=== PATIENT | female | born 1930 | race Caucasian/White ===

== ENCOUNTER 2017-05-18 06:19 | Emergency (ER) | payer MEDICARE, BC ==
--- NOTE | 2017-05-18 07:10 | EDM.PDOC ---
ED HPI GENERAL MEDICAL PROBLEM - General Chief Complaint: Genitourinary Problem Stated Complaint: POSSIBLE UTI Time Seen by Provider: 05/18/17 07:00 - History of Present Illness INITIAL COMMENTS - FREE TEXT/NARRATIVE: HISTORY AND PHYSICAL: History of present illness: The patient is a 87-year-old female with a history of hypertension who follows at [facility] and presents with complaints of dysuria and frequency that started 2 days ago, she felt it was getting better yesterday but then last evening and this morning it seemed to worsen again. She has had bladder infections in the past and has had similar symptoms. She has no flank pain no abdominal pain and only had some nausea this morning with one small clear emesis. Patient says that she has anxiety and sometimes when she gets anxious she will have nausea and vomiting. She took an anxiety pill this morning and her nausea is now gone. She has no chest pain shortness of breath or upper respiratory symptoms. She has had normal bowel movements. The patient says that she felt very hot yesterday and had chills as well but did not take her temperature. She does not feel that way currently. The patient denies that she is having urinary retention she does has the urgency frequency and burning. Review of systems: As per history of present illness and below otherwise all systems reviewed and negative. Past medical history: As per history of present illness and as reviewed below otherwise noncontributory. Surgical history: As per history of present illness and as reviewed below otherwise noncontributory. Social history: No reported history of drug or alcohol abuse. Family history: As per history of present illness and as reviewed below otherwise noncontributory. Physical exam: General: Well-developed well-nourished female who is nontoxic and speaking clearly and easily in the ED. She seems a little anxious in discussing things with me but she has nontoxic and interactive HEENT: Atraumatic, normocephalic, negative for conjunctival pallor or scleral icterus, mucous membranes moist, throat clear, neck supple, nontender, trachea midline. Lungs: Clear to auscultation, breath sounds equal bilaterally, chest nontender. Heart: S1S2, regular rate and rhythm on my evaluation Abdomen: Soft, nondistended, nontender. There is no evidence of any distended bladder rebound guarding or tympany on percussion. Bowel sounds are slightly hypoactive Negative for masses or hepatosplenomegaly. Negative for costovertebral tenderness. Pelvis: Stable nontender. Genitourinary: Deferred. Rectal: Deferred. Extremities: Atraumatic, negative for cords or calf pain. Neurovascular unremarkable. Neuro: Awake, alert, oriented. Cranial nerves II through XII unremarkable. Cerebellum unremarkable. Motor and sensory unremarkable throughout. Exam nonfocal. Diagnostics: UA urine culture CBC CMP Therapeutics: Rocephin Repeat heart rate by nursing was 83 Impression: UTI Definitive disposition and diagnosis as appropriate pending reevaluation and review of above. Lower Abdomen Pain Score (Numeric/FACES): 10 - Related Data Allergies Allergy/AdvReac Type Severity Reaction Status Date / Time neomycin Allergy Rash Verified 02/09/15 13:49 sulfamethoxazole Allergy Rash Verified 02/09/15 13:49 [From Bactrim] trimethoprim [From Bactrim] Allergy Rash Verified 02/09/15 13:49 Home Meds: Home Meds Diltiazem HCl [Diltiazem ER] 120 mg PO BEDTIME 10/21/14 [History] Estradiol [Estradiol] 1 patch .ROUTE ASDIRECTED 10/21/14 [History] HCTZ/Triamterene [Maxzide 25-37.5 MG] 25 - 37.5 mg PO BRK 10/21/14 [History] Quinapril HCl 20 mg PO BRK 10/21/14 [History] Ranitidine [Zantac] 150 mg PO DAILY 10/21/14 [History] LORazepam 0.5 mg PO TID PRN 11/17/14 [History] Loratadine 10 mg PO DAILY PRN 11/17/14 [History] Multivitamin [Multi-Vitamin Daily] 1 tab PO DAILY 02/09/15 [History] Past Medical History HEENT History: Reports: Impaired Vision Cardiovascular History: Reports: Hypertension Gastrointestinal History: Reports: GERD, Hiatal Hernia Genitourinary History: Reports: None 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: - Infectious Disease History Infectious Disease History: Reports: Measles - Past Surgical History HEENT Surgical History: Reports: None GI Surgical History: Reports: Colonoscopy, Hernia, Abdominal Female Surgical History: Reports: Hysterectomy Social & Family History - Family History Family Medical History: Noncontributory - Tobacco Use Smoking Status *Q: Never Smoker Second Hand Smoke Exposure: Yes - Caffeine Use Caffeine Use: Reports: None - Alcohol Use Days Per Week of Alcohol Use: 0 Number of Drinks Per Day: 0 Total Drinks Per Week: 0 - Recreational Drug Use Recreational Drug Use: No Drug Use in Last 12 Months: No ED ROS GENERAL - Review of Systems Review Of Systems: ROS reveals no pertinent complaints other than HPI. ED EXAM, GENERAL - Physical Exam Exam: See Below (See dictation) Course - Vital Signs Last Recorded V/S: Last Vital Signs Temp 36.8 C 05/18/17 07:06 Pulse 83 05/18/17 07:11 Resp 20 05/18/17 06:24 BP 142/73 H 05/18/17 07:11 Pulse Ox 94 L 05/18/17 06:24 - Orders/Labs/Meds Orders: Active Orders 24 hr Category Date Time Status CULTURE URINE [RM] Stat Lab 05/18/17 06:40 Received Labs: Laboratory Tests 05/18/17 05/18/17 05/18/17 Range/Units 06:40 07:16 07:16 WBC 9.82 (4.0-11.0) K/uL RBC 4.36 (4.30-5.90) M/uL Hgb 13.5 (12.0-16.0) g/dL Hct 39.6 (36.0-46.0) % MCV 90.8 (80.0-98.0) fL MCH 31.0 (27.0-32.0) pg MCHC 34.1 (31.0-37.0) g/dL RDW Std Deviation 44.4 (28.0-62.0) fl RDW Coeff of Ranjit 13 (11.0-15.0) % Plt Count 299 (150-400) K/uL MPV 8.80 (7.40-12.00) fL Neut % (Auto) 73.3 (48.0-80.0) % Lymph % (Auto) 20.1 (16.0-40.0) % [place] % (Auto) 5.9 (0.0-15.0) % Eos % (Auto) 0.5 (0.0-7.0) % Baso % (Auto) 0.2 (0.0-1.5) % Neut # (Auto) 7.2 H (1.4-5.7) K/uL Lymph # (Auto) 2.0 (0.6-2.4) K/uL [place] # (Auto) 0.6 (0.0-0.8) K/uL Eos # (Auto) 0.1 (0.0-0.7) K/uL Baso # (Auto) 0.0 (0.0-0.1) K/uL Nucleated RBC % 0.0 /100WBC Nucleated RBCs # 0 K/uL Sodium 136 (136-146) mmol/L Potassium 3.9 (3.5-5.1) mmol/L Chloride 101 (98-110) mmol/L Carbon Dioxide 25 (21-31) mmol/L BUN 24 H (6.0-23.0) mg/dL Creatinine 1.1 (0.6-1.5) mg/dL Est Cr Clr Drug Dosing 31.11 mL/min Estimated GFR (MDRD) 47.0 ml/min Glucose 107 (60-110) mg/dL Calcium 9.1 (8.8-10.8) mg/dL Total Bilirubin 0.9 (0.1-1.5) mg/dL AST 16 (5-40) IU/L ALT 15 (8-54) IU/L Alkaline Phosphatase 82 (40-150) Total Protein 7.2 (6.0-8.0) g/dL Albumin 4.0 (3.4-4.8) g/dL Globulin 3.2 (2.0-3.5) g/dL Albumin/Globulin Ratio 1.3 (1.3-2.8) Urine Color YELLOW Urine Appearance CLOUDY Urine pH 6.0 (5.0-8.0) Ur Specific [place] 1.010 (1.001-1.035) Urine Protein NEGATIVE (NEGATIVE) mg/dL Urine Glucose (UA) NEGATIVE (NEGATIVE) mg/dL Urine Ketones NEGATIVE (NEGATIVE) mg/dL Urine Occult Blood MODERATE (NEGATIVE) Urine Nitrite NEGATIVE (NEGATIVE) Urine Bilirubin NEGATIVE (NEGATIVE) Urine Urobilinogen 0.2 (<2.0) EU/dL Ur Leukocyte Esterase LARGE (NEGATIVE) Urine RBC 0-3 (0-2/HPF) Urine WBC >100 (0-5/HPF) Ur Epithelial Cells OCCASIONAL (NONE-FEW) Ur Renal Epithelial Cell OCCASIONAL Urine Bacteria 1+ H (NEGATIVE) Meds: Medications Discontinued Medications Generic Name Dose Route Start Last Admin Trade Name Freq PRN Reason Stop Dose Admin Ceftriaxone Sodium 1,000 mg/ 4 mls @ 4 mls/sec 05/18/17 07:53 Lidocaine HCl IM 05/18/17 07:54 ONETIME ONE Departure - Departure Time of Disposition: 07:54 Disposition: Home, Self-Care 01 Condition: Good Clinical Impression: UTI, Urinary tract infectious disease - Discharge Information Referrals: PCP,None [Primary Care Provider] - Forms: ED Department Discharge Additional Instructions: The following information is given to patients seen in the emergency department who are being discharged to home. This information is to outline your options for follow-up care. We provide all patients seen in our emergency department with a follow-up referral. The need for follow-up, as well as the timing and circumstances, are variable depending upon the specifics of your emergency department visit. If you don't have a primary care physician on staff, we will provide you with a referral. We always advise you to contact your personal physician following an emergency department visit to inform them of the circumstance of the visit and for follow-up with them and/or the need for any referrals to a consulting specialist. The emergency department will also refer you to a specialist when appropriate. This referral assures that you have the opportunity for followup care with a specialist. All of these measure are taken in an effort to provide you with optimal care, which includes your followup. Under all circumstances we always encourage you to contact your private physician who remains a resource for coordinating your care. When calling for followup care, please make the office aware that this follow-up is from your recent emergency room visit. If for any reason you are refused follow-up, please contact the [facility] emergency department at and ask to speak to the emergency department charge nurse. [address] [place] [address] [facility] Primary care- Internal Medicine and Family [address] [address] Push fluids and take antibiotics until they're finished. He can also take the Pyridium your prescribed for bladder spasm and discomfort. Please call and follow-up with your provider at [facility] in the next few days for reevaluation and further care. Return to ER as needed and as discussed. - My Orders Last 24 Hours: My Active Orders 05/18/17 06:40 CULTURE URINE [RM] Stat - Assessment/Plan Last 24 Hours: My Active Orders 05/18/17 06:40 CULTURE URINE [RM] Stat
[2017-05-18] MEDS ORDERED: cefTRIAXone 1,000 MG in Lidocaine 1% 4 ML IM ONE (07:53)
[2017-05-18 08:26] VITALS: BP 135/78
== END 2017-05-18 08:20 | disposition home or self-care (01) ==
LOC: MW.ED 06:19
DX: N39.0 Urinary tract infection, site not specified (principal); I10 Essential (primary) hypertension; K21.9 Gastro-esophageal reflux disease without esophagitis; Z90.710 Acquired absence of both cervix and uterus; Z88.2 Allergy status to sulfonamides; Z88.1 Allergy status to other antibiotic agents; Z79.899 Other long term (current) drug therapy
CPT/HCPCS: 36415; 80053; 81001; 85025; 87086; 96372; 99283; J0696; 87088; 87186

== ENCOUNTER 2018-02-28 16:53 | Emergency (ER) | payer MEDICARE, OTHER ==
--- NOTE | 2018-02-28 17:13 | EDM.PDOC ---
ED HPI GENERAL MEDICAL PROBLEM - General Chief Complaint: Genitourinary Problem Stated Complaint: UTI Time Seen by Provider: 02/28/18 17:06 Source of Information: Reports: Patient - History of Present Illness INITIAL COMMENTS - FREE TEXT/NARRATIVE: HISTORY AND PHYSICAL: History of present illness: []88-year-old female emergency department with 2 days of urinary urgency and dysuria with past medical history of hypertension and proximal A. fib. Patient states that yesterday she noticed that she was going to the bathroom more frequently. Later that evening she noticed that she was having more urgency as well as minor burning with urination. Over the evening she did feel somewhat like she had a fever and had some mild neck night sweats. Today states that the burning has become much more severe so came to the emergency department for further evaluation. Patient states that she has had urinary tract infections previously with similar symptoms. She denies any back pain or hematuria. She currently denies any chest pain, palpitation, shortness breath, syncopal episodes, focal neurologic episodes. Prior to current symptoms she was feeling well and actually had a physical exam on Friday [address] [address] and was told she was doing very well. Review of systems: As per history of present illness and below otherwise all systems reviewed and negative. Past medical history: As per history of present illness and as reviewed below otherwise noncontributory. Surgical history: As per history of present illness and as reviewed below otherwise noncontributory. Social history: No reported history of drug or alcohol abuse. Family history: As per history of present illness and as reviewed below otherwise noncontributory. Physical exam: HEENT: Atraumatic, normocephalic, pupils reactive, negative for conjunctival pallor or scleral icterus, mucous membranes moist, throat clear, neck supple, nontender, trachea midline. Lungs: Clear to auscultation, breath sounds equal bilaterally, chest nontender. Heart: S1S2, regular, negative for clicks, rubs, or JVD. Abdomen: Soft, nondistended, nontender. Negative for masses or hepatosplenomegaly. Negative for costovertebral tenderness. Pelvis: Stable nontender. Genitourinary: Deferred. Rectal: Deferred. Extremities: Atraumatic, negative for cords or calf pain. Neurovascular unremarkable. Neuro: Awake, alert, oriented. Cranial nerves II through XII unremarkable. Cerebellum unremarkable. Motor and sensory unremarkable throughout. Exam nonfocal. Diagnostics: CBC, BMP, UA/UC Therapeutics: Cipro 500 mg by mouth twice a day 7 days Impression: Acute cystitis Urinary urgency Dysuria Plan: CBC and BMP were unremarkable. Urinalysis revealed +1 bacteria in the numerous to count white blood cells indicative of acute cystitis. Patient was given a prescription for ciprofloxacin 500 mg by mouth twice a day and told to continue to hydrate. She was also given Azo for her burning dysuria. She was instructed to follow-up with her primary care physician next week. Discharged in good condition with instructions to return to emergency department if she had any new or worsening symptoms. Perineal Area Pain Score (Numeric/FACES): 9 - Related Data Allergies Allergy/AdvReac Type Severity Reaction Status Date / Time neomycin Allergy Rash Verified 02/28/18 17:02 sulfamethoxazole Allergy Rash Verified 02/28/18 17:02 [From Bactrim] trimethoprim [From Bactrim] Allergy Rash Verified 02/28/18 17:02 Home Meds: Home Meds Diltiazem HCl [Diltiazem ER] 120 mg PO BEDTIME 10/21/14 [History] Estradiol 1 patch .ROUTE ASDIRECTED 10/21/14 [History] HCTZ/Triamterene [Maxzide 25-37.5 MG] 25 - 37.5 mg PO BRK 10/21/14 [History] Quinapril HCl 20 mg PO BRK 10/21/14 [History] Ranitidine [Zantac] 150 mg PO DAILY 10/21/14 [History] LORazepam 0.5 mg PO TID PRN 11/17/14 [History] Loratadine 10 mg PO DAILY PRN 11/17/14 [History] Multivitamin [Multi-Vitamin Daily] 1 tab PO DAILY 02/09/15 [History] Past Medical History HEENT History: Reports: Impaired Vision Cardiovascular History: Reports: Hypertension Gastrointestinal History: Reports: GERD, Hiatal Hernia Genitourinary History: Reports: None 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: - Infectious Disease History Infectious Disease History: Reports: Measles - Past Surgical History HEENT Surgical History: Reports: None GI Surgical History: Reports: Colonoscopy, Hernia, Abdominal Female Surgical History: Reports: Hysterectomy Social & Family History - Family History Family Medical History: Noncontributory - Caffeine Use Caffeine Use: Reports: None ED ROS GENERAL - Review of Systems Review Of Systems: See Below ED EXAM, GENERAL - Physical Exam Exam: See Below Course - Vital Signs Last Recorded V/S: Last Vital Signs Temp 97.6 F 02/28/18 18:29 Pulse 84 02/28/18 18:29 Resp 18 02/28/18 18:29 BP 163/73 H 02/28/18 18:29 Pulse Ox 96 02/28/18 18:29 - Orders/Labs/Meds Orders: Active Orders 24 hr Category Date Time Status CULTURE URINE [RM] Stat Lab 02/28/18 17:11 Ordered Labs: Laboratory Tests 02/28/18 02/28/18 02/28/18 Range/Units 17:11 17:33 17:33 WBC 9.81 (4.0-11.0) K/uL RBC 4.36 (4.30-5.90) M/uL Hgb 13.7 (12.0-16.0) g/dL Hct 40.0 (36.0-46.0) % MCV 91.7 (80.0-98.0) fL MCH 31.4 (27.0-32.0) pg MCHC 34.3 (31.0-37.0) g/dL RDW Std Deviation 45.5 (28.0-62.0) fl RDW Coeff of Ranjit 14 (11.0-15.0) % Plt Count 348 (150-400) K/uL MPV 9.20 (7.40-12.00) fL Neut % (Auto) 54.7 (48.0-80.0) % Lymph % (Auto) 34.8 (16.0-40.0) % [place] % (Auto) 8.7 (0.0-15.0) % Eos % (Auto) 1.5 (0.0-7.0) % Baso % (Auto) 0.3 (0.0-1.5) % Neut # (Auto) 5.4 (1.4-5.7) K/uL Lymph # (Auto) 3.4 H (0.6-2.4) K/uL [place] # (Auto) 0.9 H (0.0-0.8) K/uL Eos # (Auto) 0.2 (0.0-0.7) K/uL Baso # (Auto) 0.0 (0.0-0.1) K/uL Nucleated RBC % 0.0 /100WBC Nucleated RBCs # 0 K/uL Sodium 136 (136-145) mmol/L Potassium 3.7 (3.5-5.1) mmol/L Chloride 101 (98-107) mmol/L Carbon Dioxide 27.3 (21.0-32.0) mmol/L BUN 31 H (7.0-18.0) mg/dL Creatinine 1.3 H (0.6-1.0) mg/dL Est Cr Clr Drug Dosing 26.92 mL/min Estimated GFR (MDRD) 38.7 ml/min Glucose 114 H (74-106) mg/dL Calcium 8.8 (8.5-10.1) mg/dL Urine Color YELLOW Urine Appearance CLOUDY Urine pH 6.0 (5.0-8.0) Ur Specific [place] <= 1.005 (1.001-1.035) Urine Protein NEGATIVE (NEGATIVE) mg/dL Urine Glucose (UA) NEGATIVE (NEGATIVE) mg/dL Urine Ketones NEGATIVE (NEGATIVE) mg/dL Urine Occult Blood MODERATE (NEGATIVE) Urine Nitrite NEGATIVE (NEGATIVE) Urine Bilirubin NEGATIVE (NEGATIVE) Urine Urobilinogen 0.2 (<2.0) EU/dL Ur Leukocyte Esterase LARGE (NEGATIVE) Urine RBC 0-3 (0-2/HPF) Urine WBC TO NUMEROUS TO COUNT H (0-5/HPF) Ur Epithelial Cells OCCASIONAL (NONE-FEW) Urine Bacteria 1+ H (NEGATIVE) Meds: Medications Discontinued Medications Generic Name Dose Route Start Last Admin Trade Name Freq PRN Reason Stop Dose Admin Phenazopyridine HCl 200 mg 02/28/18 18:26 02/28/18 18:33 Pyridium PO 02/28/18 18:27 200 mg ONETIME ONE Administration Departure - Departure Time of Disposition: 18:49 Disposition: Home, Self-Care 01 Condition: Good Clinical Impression: Acute cystitis Qualifiers: Hematuria presence: without hematuria Qualified Code(s): N30.00 - Acute cystitis without hematuria - Discharge Information Forms: ED Department Discharge Additional Instructions: My general discharge The following information is given to patients seen in the emergency department who are being discharged to home. This information is to outline your options for follow-up care. We provide all patients seen in our emergency department with a follow-up referral. The need for follow-up, as well as the timing and circumstances, are variable depending upon the specifics of your emergency department visit. If you don't have a primary care physician on staff, we will provide you with a referral. We always advise you to contact your personal physician following an emergency department visit to inform them of the circumstance of the visit and for follow-up with them and/or the need for any referrals to a consulting specialist. The emergency department will also refer you to a specialist when appropriate. This referral assures that you have the opportunity for follow-up care with a specialist. All of these measure are taken in an effort to provide you with optimal care, which includes your follow-up. Under all circumstances we always encourage you to contact your private physician who remains a resource for coordinating your care. When calling for follow-up care, please make the office aware that this follow-up is from your recent emergency room visit. If for any reason you are refused follow-up, please contact the [facility] Emergency Department at and asked to speak to the emergency department charge nurse. [facility] Primary Care [address] [place] [address] [place] [address] - My Orders Last 24 Hours: My Active Orders 02/28/18 17:11 CULTURE URINE [RM] Stat - Assessment/Plan Last 24 Hours: My Active Orders 02/28/18 17:11 CULTURE URINE [RM] Stat
[2018-02-28] MEDS ORDERED: Phenazopyridine 200 MG Tab PO ONE (18:26)
[2018-02-28 18:30] VITALS: BP 163/73
== END 2018-02-28 19:03 | disposition home or self-care (01) ==
LOC: MW.ED 16:53
DX: N30.00 Acute cystitis without hematuria (principal); I10 Essential (primary) hypertension; K21.9 Gastro-esophageal reflux disease without esophagitis; Z90.710 Acquired absence of both cervix and uterus; Z88.1 Allergy status to other antibiotic agents; Z88.2 Allergy status to sulfonamides; Z79.899 Other long term (current) drug therapy
CPT/HCPCS: 36415; 80048; 81001; 85025; 87086; 87088; 87186; 99283; A9270

== ENCOUNTER 2018-03-22 01:19 | Inpatient (IN) | payer MEDICARE, OTHER ==
--- NOTE | 2018-03-22 01:24 | EDM.PDOC ---
ED HPI GENERAL MEDICAL PROBLEM - General Stated Complaint: HIGH BLOOD PRESSURE Time Seen by Provider: 03/22/18 02:00 - History of Present Illness INITIAL COMMENTS - FREE TEXT/NARRATIVE: HISTORY AND PHYSICAL: History of present illness: Patient 88-year-old female with history of anxiety and hypertension who presents with a concern of dysphoria anxiousness he states this did not resolve with her anxiolytic the form of lorazepam 1 mg. She denies chest pain shortness of breath nausea vomiting fever chills or other complaints and is extremely anxious on arrival Review of systems: As per history of present illness and below otherwise all systems reviewed and negative. Past medical history: As per history of present illness and as reviewed below otherwise noncontributory. Surgical history: As per history of present illness and as reviewed below otherwise noncontributory. Social history: No reported history of drug or alcohol abuse. Family history: As per history of present illness and as reviewed below otherwise noncontributory. Physical exam: HEENT: Atraumatic, normocephalic, pupils reactive, negative for conjunctival pallor or scleral icterus, mucous membranes moist, throat clear, neck supple, nontender, trachea midline. Lungs: Clear to auscultation, breath sounds equal bilaterally, chest nontender. Heart: S1S2, irregularly irregular and tachycardic, negative for clicks, rubs, or JVD. Abdomen: Soft, nondistended, nontender. Negative for masses or hepatosplenomegaly. Negative for costovertebral tenderness. Pelvis: Stable nontender. Genitourinary: Deferred. Rectal: Deferred. Extremities: Atraumatic, negative for cords or calf pain. Neurovascular unremarkable. Neuro: Awake, alert, oriented. Cranial nerves II through XII unremarkable. Cerebellum unremarkable. Motor and sensory unremarkable throughout. Exam nonfocal. Diagnostics: CBC CMP troponin PT/INR chest x-ray EKG UA Therapeutics: IV O2 monitor Impression: #1 anxiety #2 medical screening exam #3 new-onset A. fib with rapid ventricular response Definitive disposition and diagnosis as appropriate pending reevaluation and review of above. - Related Data Allergies Allergy/AdvReac Type Severity Reaction Status Date / Time neomycin Allergy Rash Verified 02/28/18 17:02 sulfamethoxazole Allergy Rash Verified 02/28/18 17:02 [From Bactrim] trimethoprim [From Bactrim] Allergy Rash Verified 02/28/18 17:02 Home Meds: Home Meds Diltiazem HCl [Diltiazem ER] 120 mg PO BEDTIME 10/21/14 [History] Estradiol 1 patch .ROUTE ASDIRECTED 10/21/14 [History] HCTZ/Triamterene [Maxzide 25-37.5 MG] 25 - 37.5 mg PO BRK 10/21/14 [History] Quinapril HCl 20 mg PO BRK 10/21/14 [History] Ranitidine [Zantac] 150 mg PO DAILY 10/21/14 [History] LORazepam 0.5 mg PO TID PRN 11/17/14 [History] Loratadine 10 mg PO DAILY PRN 11/17/14 [History] Multivitamin [Multi-Vitamin Daily] 1 tab PO DAILY 02/09/15 [History] Past Medical History HEENT History: Reports: Impaired Vision Cardiovascular History: Reports: Hypertension Gastrointestinal History: Reports: GERD, Hiatal Hernia Genitourinary History: Reports: None 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 ED EXAM, GENERAL - Physical Exam Exam: See Below (dictation) Course - Vital Signs Last Recorded V/S: Last Vital Signs Temp 36.1 C 03/23/18 12:00 Pulse 67 03/22/18 15:39 Resp 15 03/23/18 13:00 BP 133/79 03/23/18 13:00 Pulse Ox 94 L 03/23/18 13:00 - Orders/Labs/Meds Orders: Medication Orders Diltiazem HCl (Cardizem) 90 mg PO Q8HR RENE Last Admin: 03/23/18 13:12 Dose: 90 mg Diltiazem HCl 125 mg/ Sodium (Chloride) 125 mls @ 5 mls/hr IV Q24H RENE; Protocol Last Admin: 03/23/18 11:33 Dose: 5 mg/hr, 5 mls/hr Ondansetron HCl (Zofran) 4 mg IVPUSH Q4H PRN PRN Reason: Nausea Last Admin: 03/23/18 11:18 Dose: 4 mg Rivaroxaban (Xarelto) 20 mg PO DAILY@0800 RENE Last Admin: 03/23/18 08:30 Dose: 20 mg Labs: Laboratory Tests 03/22/18 03/22/18 03/22/18 Range/Units 01:30 01:30 01:30 WBC 12.44 H (4.0-11.0) K/uL RBC 4.62 (4.30-5.90) M/uL Hgb 14.2 (12.0-16.0) g/dL Hct 42.1 (36.0-46.0) % MCV 91.1 (80.0-98.0) fL MCH 30.7 (27.0-32.0) pg MCHC 33.7 (31.0-37.0) g/dL RDW Std Deviation 42.8 (28.0-62.0) fl RDW Coeff of Ranjit 13 (11.0-15.0) % Plt Count 363 (150-400) K/uL MPV 9.00 (7.40-12.00) fL Neut % (Auto) 36.4 L (48.0-80.0) % Lymph % (Auto) 54.3 H (16.0-40.0) % [place] % (Auto) 7.8 (0.0-15.0) % Eos % (Auto) 1.3 (0.0-7.0) % Baso % (Auto) 0.2 (0.0-1.5) % Neut # (Auto) 4.5 (1.4-5.7) K/uL Lymph # (Auto) 6.8 H (0.6-2.4) K/uL [place] # (Auto) 1.0 H (0.0-0.8) K/uL Eos # (Auto) 0.2 (0.0-0.7) K/uL Baso # (Auto) 0.0 (0.0-0.1) K/uL Lactate (0.20-2.00) mmol/L Sodium 134 L (136-145) mmol/L Potassium 3.2 L (3.5-5.1) mmol/L Chloride 97 L (98-107) mmol/L Carbon Dioxide 25.3 (21.0-32.0) mmol/L BUN 24 H (7.0-18.0) mg/dL Creatinine 1.3 H (0.6-1.0) mg/dL Est Cr Clr Drug Dosing TNP Estimated GFR (MDRD) 38.7 ml/min Glucose 132 H (74-106) mg/dL Calcium 9.8 (8.5-10.1) mg/dL Magnesium 2.0 (1.8-2.4) mg/dL Total Bilirubin 0.8 (0.2-1.0) mg/dL AST 21 (15-37) IU/L ALT 21 (14-63) IU/L Alkaline Phosphatase 90 (46-116) U/L CK-MB (CK-2) 1.2 (0-3.6) ng/mL Troponin I < 0.050 (0.000-0.056) ng/mL Total Protein 7.7 (6.4-8.2) g/dL Albumin 4.0 (3.4-5.0) g/dL Globulin 3.7 H (2.0-3.5) g/dL Albumin/Globulin Ratio 1.1 L (1.3-2.8) 03/22/18 Range/Units 01:30 WBC (4.0-11.0) K/uL RBC (4.30-5.90) M/uL Hgb (12.0-16.0) g/dL Hct (36.0-46.0) % MCV (80.0-98.0) fL MCH (27.0-32.0) pg MCHC (31.0-37.0) g/dL RDW Std Deviation (28.0-62.0) fl RDW Coeff of Ranjit (11.0-15.0) % Plt Count (150-400) K/uL MPV (7.40-12.00) fL Neut % (Auto) (48.0-80.0) % Lymph % (Auto) (16.0-40.0) % [place] % (Auto) (0.0-15.0) % Eos % (Auto) (0.0-7.0) % Baso % (Auto) (0.0-1.5) % Neut # (Auto) (1.4-5.7) K/uL Lymph # (Auto) (0.6-2.4) K/uL [place] # (Auto) (0.0-0.8) K/uL Eos # (Auto) (0.0-0.7) K/uL Baso # (Auto) (0.0-0.1) K/uL Lactate 2.6 H (0.20-2.00) mmol/L Sodium (136-145) mmol/L Potassium (3.5-5.1) mmol/L Chloride (98-107) mmol/L Carbon Dioxide (21.0-32.0) mmol/L BUN (7.0-18.0) mg/dL Creatinine (0.6-1.0) mg/dL Est Cr Clr Drug Dosing Estimated GFR (MDRD) ml/min Glucose (74-106) mg/dL Calcium (8.5-10.1) mg/dL Magnesium (1.8-2.4) mg/dL Total Bilirubin (0.2-1.0) mg/dL AST (15-37) IU/L ALT (14-63) IU/L Alkaline Phosphatase (46-116) U/L CK-MB (CK-2) (0-3.6) ng/mL Troponin I (0.000-0.056) ng/mL Total Protein (6.4-8.2) g/dL Albumin (3.4-5.0) g/dL Globulin (2.0-3.5) g/dL Albumin/Globulin Ratio (1.3-2.8) Meds: Medications Generic Name Dose Route Start Last Admin Trade Name Freq PRN Reason Stop Dose Admin Diltiazem HCl 90 mg 03/23/18 11:46 03/23/18 13:12 Cardizem PO 90 mg Q8HR REEN Administration Diltiazem HCl 125 mg/ Sodium 125 mls @ 5 mls/hr 03/23/18 10:45 03/23/18 11:33 Chloride IV 5 mg/hr Q24H RENE 5 mls/hr Administration Protocol 5 MG/HR Ondansetron HCl 4 mg 03/23/18 10:46 03/23/18 11:18 Zofran IVPUSH 4 mg Q4H PRN Administration Nausea Rivaroxaban 20 mg 03/23/18 08:00 03/23/18 08:30 Xarelto PO 20 mg DAILY@0800 [facility] Administration Discontinued Medications Generic Name Dose Route Start Last Admin Trade Name Freshiela PRN Reason Stop Dose Admin Ceftriaxone Sodium 1,000 mg 03/22/18 03:42 03/22/18 05:51 Rocephin IVPUSH 03/22/18 03:43 Not Given ONETIME ONE Digoxin 500 mcg 03/22/18 02:34 03/22/18 02:41 Lanoxin IVPUSH 03/22/18 02:35 500 mcg ONETIME ONE Administration Diltiazem HCl 20 mg 03/22/18 01:31 03/22/18 01:39 Diltiazem IVPUSH 03/22/18 01:32 20 mg ONETIME ONE Administration Diltiazem HCl 10 mg 03/22/18 08:51 03/22/18 09:01 Diltiazem IVPUSH 03/22/18 08:52 10 mg ONETIME ONE Administration Diltiazem HCl 60 mg 03/22/18 14:00 03/23/18 05:52 Cardizem PO 60 mg Q8HR RENE Administration Diltiazem HCl 90 mg 03/23/18 11:45 03/23/18 12:22 Cardizem PO Not Given Q8HR [facility] Enoxaparin Sodium 40 mg 03/22/18 05:00 03/22/18 04:59 Lovenox SUBCUT 40 mg Q24H RENE Administration Heparin Sodium (Porcine) 5,000 units 03/22/18 09:00 Heparin Sodium SUBCUT Q12H [facility] Diltiazem HCl 125 mg/ Sodium 125 mls @ 5 mls/hr 03/22/18 01:47 03/22/18 02:29 Chloride IV 03/23/18 02:46 0 mg/hr NOW ONE 0 mls/hr Infusion Protocol 5 MG/HR Sodium Chloride 1,000 mls @ 999 mls/hr 03/22/18 01:47 03/22/18 02:29 Normal Saline IV 03/22/18 02:47 999 mls/hr .Bolus ONE Infusion Potassium Chloride/Sodium Chloride 1,000 mls @ 100 mls/hr 03/22/18 03:15 07/30 04:47 Normal Saline With 40 Meq Kcl IV 03/22/18 13:14 100 mls/hr ASDIRECTED RENE Administration Sodium Chloride 1,000 mls @ 125 mls/hr 03/22/18 03:07 03/22/18 04:47 Normal Saline IV 03/22/18 11:06 0 mls/hr ONETIME ONE Infusion Diltiazem HCl 125 mg/ Sodium 125 mls @ 5 mls/hr 03/22/18 03:29 03/22/18 04:44 Chloride IV 03/23/18 04:28 Not Given NOW ONE Protocol 5 MG/HR Esmolol HCl 2,500 mg/ Sodium 500 mls @ 47.28 mls/hr 03/22/18 03:45 Chloride IV TITRATE RENE Protocol 50 MCG/KG/MIN Ceftriaxone Sodium/Dextrose 50 mls @ 200 mls/hr 03/22/18 04:00 03/22/18 04:45 Rocephin In Dextrose,Iso-Osm 1 Gm/50 Ml IV 03/22/18 04:14 200 mls/hr ONETIME ONE Administration Esmolol HCl 1,000 mg/ Sodium 200 mls @ 47.28 mls/hr 03/22/18 05:45 Chloride IV TITRATE RENE Protocol 50 MCG/KG/MIN Esmolol HCl 1,000 mg/ Sodium 100 mls @ 23.64 mls/hr 03/22/18 08:17 Chloride IV TITRATE RENE Protocol 50 MCG/KG/MIN Sodium Chloride 500 mls @ 999 mls/hr 03/22/18 18:45 03/22/18 18:40 Normal Saline IV 999 mls/hr ASDIRECTED RENE Administration Metoprolol Tartrate 5 mg 03/22/18 14:15 03/22/18 15:39 Lopressor IV 03/22/18 14:16 Not Given ONETIME ONE Potassium Chloride 40 meq 03/22/18 03:01 03/22/18 04:44 Klor-Con M20 PO 03/22/18 03:02 40 meq ONETIME ONE Administration Departure - Departure Time of Disposition: 13:39 Disposition: Admitted As Inpatient 66 Condition: Good Clinical Impression: Atrial fibrillation with rapid ventricular response - Discharge Information
[2018-03-22] MEDS ORDERED: Diltiazem 25 MG/5 ML SDV IVPUSH ONE ×2 (01:31→08:51)
[2018-03-22] MEDS ORDERED: Sodium Chloride 0.9% 1,000 ML IV ONE ×2 (01:47→03:07)
[2018-03-22] MEDS ORDERED: Diltiazem 125 MG in Sodium Chloride 0.9% 100 ML IV ONE ×2 (01:47→03:29)
[2018-03-22 02:11] LABS: CHLORIDE,CL 97 mmol/L (98-107); SODIUM,NA 134 mmol/L (136-145)
[2018-03-22] MEDS ORDERED: Digoxin 500 MCG/2 ML Amp IVPUSH ONE (02:34)
[2018-03-22] MEDS ORDERED: Potassium Chloride 20 MEQ Tab.ER PO ONE (03:01)
[2018-03-22] MEDS ORDERED: Sodium Chloride 0.9% with KCl 1,000 ML IV SCH (03:15)
--- NOTE | 2018-03-22 03:35 | PCM.HP ---
H&P History of Present Illness - General Admit Problem/Dx: Admission Diagnosis/Problem Admission Diagnosis/Problem Atrial fibrillation - History of Present Illness Initial Comments - Free Text/Narative: 88 yo female with pmh of anxiety, HTN and paroxysmal atrial fibrillation. She was watching the [email or web address] tonight and began to fell tired. She went home and slept for an hour then woke up with chills and a racing heart. In the ED she was noted to be in atrial fibrillation with RVR. She was given IV diltiazem and her blood pressure droped to 70s systolic. She was given a fluid bolus and her blood pressure improved. two weeks ago she was given Ciprofloxacin for UTI. - Related Data Allergies/Adverse Reactions: Allergies Allergy/AdvReac Type Severity Reaction Status Date / Time neomycin Allergy Rash Verified 02/28/18 17:02 sulfamethoxazole Allergy Rash Verified 02/28/18 17:02 [From Bactrim] trimethoprim [From Bactrim] Allergy Rash Verified 02/28/18 17:02 Home Medications: Home Meds Diltiazem HCl [Diltiazem ER] 120 mg PO BEDTIME 10/21/14 [History] Estradiol 1 patch .ROUTE ASDIRECTED 10/21/14 [History] HCTZ/Triamterene [Maxzide 25-37.5 MG] 25 - 37.5 mg PO BRK 10/21/14 [History] Quinapril HCl 20 mg PO BRK 10/21/14 [History] Ranitidine [Zantac] 150 mg PO DAILY 10/21/14 [History] LORazepam 0.5 mg PO TID PRN 11/17/14 [History] Loratadine 10 mg PO DAILY PRN 11/17/14 [History] Multivitamin [Multi-Vitamin Daily] 1 tab PO DAILY 02/09/15 [History] Past Medical History HEENT History: Reports: Impaired Vision Cardiovascular History: Reports: Hypertension Gastrointestinal History: Reports: GERD, Hiatal Hernia Genitourinary History: Reports: None 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 Exam - Exam Exam: See Below - Vital Signs Vital Signs: Last Vital Signs Temp 36.1 C 03/22/18 01:33 Pulse 120 H 03/22/18 02:49 Resp 16 03/22/18 02:49 BP 120/78 03/22/18 02:49 Pulse Ox 94 L 03/22/18 02:49 - Exam General: Alert, Oriented HEENT: Mucosa Moist & [place] Cardiovascular: Regular Rate, Regular Rhythm GI/Abdominal Exam: Soft, Non-Tender Extremities: Non-Tender, No Pedal Edema Skin: Warm, Dry, Intact Neurological: Cranial Nerves Intact, Reflexes Equal Bilateral - Patient Data Lab Results Last 24 hrs: Laboratory Results - last 24 hr 03/22/18 03/22/18 03/22/18 Range/Units 01:30 01:30 01:30 WBC 12.44 H (4.0-11.0) K/uL RBC 4.62 (4.30-5.90) M/uL Hgb 14.2 (12.0-16.0) g/dL Hct 42.1 (36.0-46.0) % MCV 91.1 (80.0-98.0) fL MCH 30.7 (27.0-32.0) pg MCHC 33.7 (31.0-37.0) g/dL RDW Std Deviation 42.8 (28.0-62.0) fl RDW Coeff of Ranjit 13 (11.0-15.0) % Plt Count 363 (150-400) K/uL MPV 9.00 (7.40-12.00) fL Neut % (Auto) 36.4 L (48.0-80.0) % Lymph % (Auto) 54.3 H (16.0-40.0) % [place] % (Auto) 7.8 (0.0-15.0) % Eos % (Auto) 1.3 (0.0-7.0) % Baso % (Auto) 0.2 (0.0-1.5) % Neut # (Auto) 4.5 (1.4-5.7) K/uL Lymph # (Auto) 6.8 H (0.6-2.4) K/uL [place] # (Auto) 1.0 H (0.0-0.8) K/uL Eos # (Auto) 0.2 (0.0-0.7) K/uL Baso # (Auto) 0.0 (0.0-0.1) K/uL Sodium 134 L (136-145) mmol/L Potassium 3.2 L (3.5-5.1) mmol/L Chloride 97 L (98-107) mmol/L Carbon Dioxide 25.3 (21.0-32.0) mmol/L BUN 24 H (7.0-18.0) mg/dL Creatinine 1.3 H (0.6-1.0) mg/dL Est Cr Clr Drug Dosing TNP Estimated GFR (MDRD) 38.7 ml/min Glucose 132 H (74-106) mg/dL Calcium 9.8 (8.5-10.1) mg/dL Magnesium 2.0 (1.8-2.4) mg/dL Total Bilirubin 0.8 (0.2-1.0) mg/dL AST 21 (15-37) IU/L ALT 21 (14-63) IU/L Alkaline Phosphatase 90 (46-116) U/L CK-MB (CK-2) 1.2 (0-3.6) ng/mL Troponin I < 0.050 (0.000-0.056) ng/mL Total Protein 7.7 (6.4-8.2) g/dL Albumin 4.0 (3.4-5.0) g/dL Globulin 3.7 H (2.0-3.5) g/dL Albumin/Globulin Ratio 1.1 L (1.3-2.8) Result Diagrams: 03/22/18 13:00 03/22/18 13:00 Problem List Initiated/Reviewed/Updated: Yes Orders Last 24hrs: Active Orders 24 hr Category Date Time Status Patient Status [ADT] Stat ADT 03/22/18 03:11 Active Cardiac Monitoring [RC] . DIRECTED Care 03/22/18 01:27 Active EKG 12 Lead [EKG Documentation Completion] [RC] STAT Care 03/22/18 01:30 Active Chest 1V Frontal [CR] Stat Exams 03/22/18 01:29 Taken LACTIC ACID,WHOLE BLOOD [BG] Routine Lab 03/22/18 03:30 Ordered UA W/MICROSCOPIC [URIN] Stat Lab 03/22/18 01:28 Ordered Diltiazem 125 MG in NS @ 5 MG/HR(100ml) Med 03/22/18 03:29 Ordered Diltiazem 125 mg Sodium Chloride 0.9% [Normal Saline] 100 ml IV NOW Diltiazem 125 mg Med 03/22/18 01:47 Active Sodium Chloride 0.9% [Normal Saline] 100 ml IV NOW Sodium Chloride 0.9% [Normal Saline] 1,000 ml Med 03/22/18 03:07 Active IV ONETIME Sodium Chloride 0.9% with KCl [Normal Saline with 40 Med 03/22/18 03:15 Active mEq KCl] 1,000 ml IV ASDIRECTED Medication Orders Diltiazem HCl 125 mg/ Sodium (Chloride) 125 mls @ 5 mls/hr IV NOW ONE; Protocol Stop: 03/23/18 02:46 Last Infusion: 03/22/18 02:29 Dose: 0 mg/hr, 0 mls/hr Admin: 03/22/18 02:11 Dose: 5 mg/hr, 5 mls/hr Potassium Chloride/Sodium Chloride (Normal Saline With 40 Meq Kcl) 1,000 mls @ 100 mls/hr IV ASDIRECTED RENE Stop: 03/22/18 13:14 Sodium Chloride (Normal Saline) 1,000 mls @ 125 mls/hr IV ONETIME ONE Stop: 03/22/18 11:06 Last Admin: 03/22/18 03:07 Dose: 125 mls/hr Diltiazem HCl 125 mg/ Sodium (Chloride) 125 mls @ 5 mls/hr IV NOW ONE; Protocol Stop: 03/23/18 04:28 Assessment/Plan Comment:: 88 yo female admitted with atrial fibrilation with RVR a.fib with RVR: patient has received digoxin, replacing potassium, will try esmolol drip for rate control leukocytosis/chills, UA and cultures pending, will give IV rocephin
[2018-03-22] MEDS ORDERED: cefTRIAXone 1,000 MG VIAL IVPUSH ONE (03:42)
[2018-03-22] MEDS ORDERED: Esmolol 2,500 MG in Sodium Chloride 0.9% 250 ML IV SCH (03:45)
[2018-03-22] MEDS ORDERED: Enoxaparin 40 MG/0.4 ML Syringe SUBCUT SCH ×2 (05:00→09:00)
[2018-03-22] MEDS ORDERED: ESMOLOL IV SCH ×2 (05:45→08:17)
[2018-03-22] MEDS ORDERED: SODIUM CHLORIDE 0.9% IV SCH ×2 (05:45→08:17)
[2018-03-22] MEDS ORDERED: Heparin Sodium 5,000 Units/ML Vial SUBCUT SCH (09:00)
--- NOTE | 2018-03-22 10:57 | PCM.PN ---
- General Info Date of Service: 03/22/18 Subjective Update: complains of fatigue, denies any chest pain, palpitations, dizziness, fevers or chills. - Review of Systems General: Reports: Other (see hpi) - Patient Data Vitals - Most Recent: Last Vital Signs Temp 36.0 C 03/22/18 08:02 Pulse 118 H 03/22/18 07:04 Resp 16 03/22/18 10:00 BP 137/68 03/22/18 10:00 Pulse Ox 95 03/22/18 10:00 Weight - Most Recent: 78.8 kg Lab Results Last 24 Hours: Laboratory Results - last 24 hr 03/22/18 03/22/18 03/22/18 Range/Units 01:30 01:30 01:30 WBC 12.44 H (4.0-11.0) K/uL RBC 4.62 (4.30-5.90) M/uL Hgb 14.2 (12.0-16.0) g/dL Hct 42.1 (36.0-46.0) % MCV 91.1 (80.0-98.0) fL MCH 30.7 (27.0-32.0) pg MCHC 33.7 (31.0-37.0) g/dL RDW Std Deviation 42.8 (28.0-62.0) fl RDW Coeff of Ranjit 13 (11.0-15.0) % Plt Count 363 (150-400) K/uL MPV 9.00 (7.40-12.00) fL Neut % (Auto) 36.4 L (48.0-80.0) % Lymph % (Auto) 54.3 H (16.0-40.0) % [place] % (Auto) 7.8 (0.0-15.0) % Eos % (Auto) 1.3 (0.0-7.0) % Baso % (Auto) 0.2 (0.0-1.5) % Neut # (Auto) 4.5 (1.4-5.7) K/uL Lymph # (Auto) 6.8 H (0.6-2.4) K/uL [place] # (Auto) 1.0 H (0.0-0.8) K/uL Eos # (Auto) 0.2 (0.0-0.7) K/uL Baso # (Auto) 0.0 (0.0-0.1) K/uL Lactate (0.20-2.00) mmol/L Sodium 134 L (136-145) mmol/L Potassium 3.2 L (3.5-5.1) mmol/L Chloride 97 L (98-107) mmol/L Carbon Dioxide 25.3 (21.0-32.0) mmol/L BUN 24 H (7.0-18.0) mg/dL Creatinine 1.3 H (0.6-1.0) mg/dL Est Cr Clr Drug Dosing TNP Estimated GFR (MDRD) 38.7 ml/min Glucose 132 H (74-106) mg/dL Calcium 9.8 (8.5-10.1) mg/dL Magnesium 2.0 (1.8-2.4) mg/dL Total Bilirubin 0.8 (0.2-1.0) mg/dL AST 21 (15-37) IU/L ALT 21 (14-63) IU/L Alkaline Phosphatase 90 (46-116) U/L CK-MB (CK-2) 1.2 (0-3.6) ng/mL Troponin I < 0.050 (0.000-0.056) ng/mL Total Protein 7.7 (6.4-8.2) g/dL Albumin 4.0 (3.4-5.0) g/dL Globulin 3.7 H (2.0-3.5) g/dL Albumin/Globulin Ratio 1.1 L (1.3-2.8) Urine Color Urine Appearance Urine pH (5.0-8.0) Ur Specific [place] (1.001-1.035) Urine Protein (NEGATIVE) mg/dL Urine Glucose (UA) (NEGATIVE) mg/dL Urine Ketones (NEGATIVE) mg/dL Urine Occult Blood (NEGATIVE) Urine Nitrite (NEGATIVE) Urine Bilirubin (NEGATIVE) Urine Urobilinogen (<2.0) EU/dL Ur Leukocyte Esterase (NEGATIVE) Urine RBC (0-2/HPF) Urine WBC (0-5/HPF) Ur Epithelial Cells (NONE-FEW) Urine Bacteria (NEGATIVE) 03/22/18 03/22/18 03/22/18 Range/Units 01:30 03:20 06:48 WBC (4.0-11.0) K/uL RBC (4.30-5.90) M/uL Hgb (12.0-16.0) g/dL Hct (36.0-46.0) % MCV (80.0-98.0) fL MCH (27.0-32.0) pg MCHC (31.0-37.0) g/dL RDW Std Deviation (28.0-62.0) fl RDW Coeff of Ranjit (11.0-15.0) % Plt Count (150-400) K/uL MPV (7.40-12.00) fL Neut % (Auto) (48.0-80.0) % Lymph % (Auto) (16.0-40.0) % [place] % (Auto) (0.0-15.0) % Eos % (Auto) (0.0-7.0) % Baso % (Auto) (0.0-1.5) % Neut # (Auto) (1.4-5.7) K/uL Lymph # (Auto) (0.6-2.4) K/uL [place] # (Auto) (0.0-0.8) K/uL Eos # (Auto) (0.0-0.7) K/uL Baso # (Auto) (0.0-0.1) K/uL Lactate 2.6 H 0.8 (0.20-2.00) mmol/L Sodium (136-145) mmol/L Potassium (3.5-5.1) mmol/L Chloride (98-107) mmol/L Carbon Dioxide (21.0-32.0) mmol/L BUN (7.0-18.0) mg/dL Creatinine (0.6-1.0) mg/dL Est Cr Clr Drug Dosing Estimated GFR (MDRD) ml/min Glucose (74-106) mg/dL Calcium (8.5-10.1) mg/dL Magnesium (1.8-2.4) mg/dL Total Bilirubin (0.2-1.0) mg/dL AST (15-37) IU/L ALT (14-63) IU/L Alkaline Phosphatase (46-116) U/L CK-MB (CK-2) (0-3.6) ng/mL Troponin I (0.000-0.056) ng/mL Total Protein (6.4-8.2) g/dL Albumin (3.4-5.0) g/dL Globulin (2.0-3.5) g/dL Albumin/Globulin Ratio (1.3-2.8) Urine Color YELLOW Urine Appearance CLEAR Urine pH 6.5 (5.0-8.0) Ur Specific [place] 1.010 (1.001-1.035) Urine Protein NEGATIVE (NEGATIVE) mg/dL Urine Glucose (UA) NEGATIVE (NEGATIVE) mg/dL Urine Ketones TRACE H (NEGATIVE) mg/dL Urine Occult Blood NEGATIVE (NEGATIVE) Urine Nitrite NEGATIVE (NEGATIVE) Urine Bilirubin NEGATIVE (NEGATIVE) Urine Urobilinogen 0.2 (<2.0) EU/dL Ur Leukocyte Esterase NEGATIVE (NEGATIVE) Urine RBC 0-2 (0-2/HPF) Urine WBC 0-2 (0-5/HPF) Ur Epithelial Cells OCCASIONAL (NONE-FEW) Urine Bacteria FEW (NEGATIVE) Med Orders - Current: Current Medications Diltiazem HCl (Cardizem) 60 mg PO Q8HR [facility] Potassium Chloride/Sodium Chloride (Normal Saline With 40 Meq Kcl) 1,000 mls @ 100 mls/hr IV ASDIRECTED [facility] Stop: 03/22/18 13:14 Last Admin: 03/22/18 04:47 Dose: 100 mls/hr Esmolol HCl 1,000 mg/ Sodium (Chloride) 100 mls @ 23.64 mls/hr IV TITRATE RENE; Protocol Rivaroxaban (Xarelto) 20 mg PO DAILY@0800 [facility] Discontinued Medications Ceftriaxone Sodium (Rocephin) 1,000 mg IVPUSH ONETIME ONE Stop: 03/22/18 03:43 Last Admin: 03/22/18 05:51 Dose: Not Given Digoxin (Lanoxin) 500 mcg IVPUSH ONETIME ONE Stop: 03/22/18 02:35 Last Admin: 03/22/18 02:41 Dose: 500 mcg Diltiazem HCl (Diltiazem) 20 mg IVPUSH ONETIME ONE Stop: 03/22/18 01:32 Last Admin: 03/22/18 01:39 Dose: 20 mg Diltiazem HCl (Diltiazem) 10 mg IVPUSH ONETIME ONE Stop: 03/22/18 08:52 Last Admin: 03/22/18 09:01 Dose: 10 mg Enoxaparin Sodium (Lovenox) 40 mg SUBCUT Q24H RENE Last Admin: 03/22/18 04:59 Dose: 40 mg Heparin Sodium (Porcine) (Heparin Sodium) 5,000 units SUBCUT Q12H RENE Diltiazem HCl 125 mg/ Sodium (Chloride) 125 mls @ 5 mls/hr IV NOW ONE; Protocol Stop: 03/23/18 02:46 Last Infusion: 03/22/18 02:29 Dose: 0 mg/hr, 0 mls/hr Sodium Chloride (Normal Saline) 1,000 mls @ 999 mls/hr IV .Bolus ONE Stop: 03/22/18 02:47 Last Infusion: 03/22/18 02:29 Dose: 999 mls/hr Sodium Chloride (Normal Saline) 1,000 mls @ 125 mls/hr IV ONETIME ONE Stop: 03/22/18 11:06 Last Infusion: 03/22/18 04:47 Dose: 0 mls/hr Diltiazem HCl 125 mg/ Sodium (Chloride) 125 mls @ 5 mls/hr IV NOW ONE; Protocol Stop: 03/23/18 04:28 Last Admin: 03/22/18 04:44 Dose: Not Given Esmolol HCl 2,500 mg/ Sodium (Chloride) 500 mls @ 47.28 mls/hr IV TITRATE RENE; Protocol Ceftriaxone Sodium/Dextrose (Rocephin In Dextrose,Iso-Osm 1 Gm/50 Ml) 50 mls @ 200 mls/hr IV ONETIME ONE Stop: 03/22/18 04:14 Last Admin: 03/22/18 04:45 Dose: 200 mls/hr Esmolol HCl 1,000 mg/ Sodium (Chloride) 200 mls @ 47.28 mls/hr IV TITRATE RENE; Protocol Potassium Chloride (Klor-Con M20) 40 meq PO ONETIME ONE Stop: 03/22/18 03:02 Last Admin: 03/22/18 04:44 Dose: 40 meq - Exam Quality Assessment: Supplemental Oxygen (1L via NC) General: Alert, Oriented HEENT: Pupils Equal, Pupils Reactive, EOMI, Mucous Membr. Moist/[place] Neck: Supple Lungs: Clear to Auscultation, Normal Respiratory Effort Cardiovascular: Irregular Rhythm, Tachycardia GI/Abdominal Exam: Normal Bowel Sounds, Soft Back Exam: Normal Inspection, Full Range of Motion Extremities: Normal Inspection, Non-Tender, No Pedal Edema Skin: Warm Psy/Mental Status: Alert, Normal Affect, Normal Mood - Problem List Review Problem List Initiated/Reviewed/Updated: Yes - My Orders Last 24 Hours: My Active Orders 03/22/18 13:00 BASIC METABOLIC PANEL,BMP [CHEM] Routine CBC WITH AUTO DIFF [HEME] Routine 03/23/18 08:00 Rivaroxaban [Xarelto] 20 mg PO DAILY@0800 - Plan Plan:: Assessment/Plan: #1. A. Fib w/ RVR - on PO Cardizem 60mg q8h. Will start Xarelto, which she'll go home on starting tomorrow AM. #2. Hypokalemia - supplemented with PO potassium and in IV fluids. Will recheck cbc, electrolytes this afternoon and manage accordingly. #3. Leukocytosis - Will DC rocephin that was initially started for presumed UTI prior to UA given unremarkable UA. If leukocytosis increased on recheck, will look for a source.
[2018-03-22] MEDS: Diltiazem IR 60 MG Tab PO SCH ×2 (13:17→21:15)
[2018-03-22] MEDS ORDERED: Metoprolol Tartrate 5 MG in Sodium Chloride 0.9% 50 ML IV ONE (14:00)
[2018-03-22] MEDS: Metoprolol Tartrate 5 MG/5 ML SDV IV ONE ×2 (14:21→15:39)
[2018-03-22] MEDS ORDERED: Sodium Chloride 0.9% 500 ML IV SCH (18:45)
[2018-03-23] MEDS: Diltiazem IR 60 MG Tab PO SCH (05:52)
[2018-03-23] MEDS: Rivaroxaban 10 MG Tab PO SCH (08:30)
[2018-03-23] MEDS ORDERED: Heparin Sodium 5,000 Units/ML Vial SUBCUT SCH (09:00)
[2018-03-23] MEDS ORDERED: Ondansetron 4 MG/2 ML SDV IVPUSH PRN (10:46)
[2018-03-23] MEDS: Diltiazem 125 MG in Sodium Chloride 0.9% 100 ML IV SCH ×2 (11:33→23:54)
[2018-03-23] MEDS ORDERED: Diltiazem IR 60 MG Tab PO SCH (11:45)
--- NOTE | 2018-03-23 11:45 | PCM.PN ---
- General Info Date of Service: 03/23/18 Subjective Update: Initially stated that she felt well with no complaints this morning. However after rounding with attending later on in the morning, she stated that she felt very nauseous after eating breakfast. Tachycardic despite PO cardizem. Denies chest pain, palpitations. - Review of Systems General: Reports: No Symptoms HEENT: Reports: No Symptoms Pulmonary: Reports: No Symptoms Cardiovascular: Reports: No Symptoms Gastrointestinal: Reports: No Symptoms Genitourinary: Reports: No Symptoms Musculoskeletal: Reports: No Symptoms Skin: Reports: No Symptoms Neurological: Reports: No Symptoms Psychiatric: Reports: No Symptoms - Patient Data Vitals - Most Recent: Last Vital Signs Temp 36.3 C 03/23/18 07:57 Pulse 67 03/22/18 15:39 Resp 15 03/23/18 11:00 BP 135/90 03/23/18 11:00 Pulse Ox 96 03/23/18 11:00 Weight - Most Recent: 79.7 kg I&O - Last 24 Hours: Intake & Output 03/22/18 03/23/18 03/23/18 22:59 06:59 14:59 Intake Total 4536 300 Output Total 1750 1950 Balance 2786 -1650 Lab Results Last 24 Hours: Laboratory Results - last 24 hr 03/22/18 03/22/18 03/22/18 Range/Units 13:00 13:00 13:00 WBC 7.67 (4.0-11.0) K/uL RBC 4.30 (4.30-5.90) M/uL Hgb 13.3 (12.0-16.0) g/dL Hct 39.4 (36.0-46.0) % MCV 91.6 (80.0-98.0) fL MCH 30.9 (27.0-32.0) pg MCHC 33.8 (31.0-37.0) g/dL RDW Std Deviation 45.4 (28.0-62.0) fl RDW Coeff of Ranjit 14 (11.0-15.0) % Plt Count 321 (150-400) K/uL MPV 9.20 (7.40-12.00) fL Neut % (Auto) 56.0 (48.0-80.0) % Lymph % (Auto) 34.4 (16.0-40.0) % [place] % (Auto) 8.5 (0.0-15.0) % Eos % (Auto) 0.8 (0.0-7.0) % Baso % (Auto) 0.3 (0.0-1.5) % Neut # (Auto) 4.3 (1.4-5.7) K/uL Lymph # (Auto) 2.6 H (0.6-2.4) K/uL [place] # (Auto) 0.7 (0.0-0.8) K/uL Eos # (Auto) 0.1 (0.0-0.7) K/uL Baso # (Auto) 0.0 (0.0-0.1) K/uL Nucleated RBC % 0.0 /100WBC Nucleated RBCs # 0 K/uL Lactate 0.9 (0.20-2.00) mmol/L Sodium 138 (136-145) mmol/L Potassium 4.7 (3.5-5.1) mmol/L Chloride 103 (98-107) mmol/L Carbon Dioxide 27.1 (21.0-32.0) mmol/L BUN 22 H (7.0-18.0) mg/dL Creatinine 1.0 (0.6-1.0) mg/dL Est Cr Clr Drug Dosing 33.58 mL/min Estimated GFR (MDRD) 52.3 ml/min Glucose 89 (74-106) mg/dL Calcium 8.4 L (8.5-10.1) mg/dL TSH 3rd Generation (0.36-3.74) uIU/mL 03/23/18 03/23/18 03/23/18 Range/Units 05:33 05:33 05:33 WBC 7.66 (4.0-11.0) K/uL RBC 4.13 L (4.30-5.90) M/uL Hgb 12.5 (12.0-16.0) g/dL Hct 37.9 (36.0-46.0) % MCV 91.8 (80.0-98.0) fL MCH 30.3 (27.0-32.0) pg MCHC 33.0 (31.0-37.0) g/dL RDW Std Deviation 45.8 (28.0-62.0) fl RDW Coeff of Ranjit 14 (11.0-15.0) % Plt Count 296 (150-400) K/uL MPV 9.30 (7.40-12.00) fL Neut % (Auto) 53.6 (48.0-80.0) % Lymph % (Auto) 35.4 (16.0-40.0) % [place] % (Auto) 7.6 (0.0-15.0) % Eos % (Auto) 3.0 (0.0-7.0) % Baso % (Auto) 0.4 (0.0-1.5) % Neut # (Auto) 4.1 (1.4-5.7) K/uL Lymph # (Auto) 2.7 H (0.6-2.4) K/uL [place] # (Auto) 0.6 (0.0-0.8) K/uL Eos # (Auto) 0.2 (0.0-0.7) K/uL Baso # (Auto) 0.0 (0.0-0.1) K/uL Nucleated RBC % 0.0 /100WBC Nucleated RBCs # 0 K/uL Lactate (0.20-2.00) mmol/L Sodium 140 (136-145) mmol/L Potassium 4.1 (3.5-5.1) mmol/L Chloride 105 (98-107) mmol/L Carbon Dioxide 28.3 (21.0-32.0) mmol/L BUN 21 H (7.0-18.0) mg/dL Creatinine 1.1 H (0.6-1.0) mg/dL Est Cr Clr Drug Dosing 30.53 mL/min Estimated GFR (MDRD) 46.9 ml/min Glucose 91 (74-106) mg/dL Calcium 8.0 L (8.5-10.1) mg/dL TSH 3rd Generation 1.86 (0.36-3.74) uIU/mL Gilberto Results Last 24 Hours: Microbiology 03/22/18 03:59 Aerobic Blood Culture - Preliminary Blood - Venous - Lab Draw NO GROWTH AFTER 1 DAY Anaerobic Blood Culture - Preliminary NO GROWTH AFTER 1 DAY 03/22/18 03:55 Aerobic Blood Culture - Preliminary Blood - Venous NO GROWTH AFTER 1 DAY Anaerobic Blood Culture - Preliminary NO GROWTH AFTER 1 DAY Med Orders - Current: Current Medications Diltiazem HCl (Cardizem) 60 mg PO Q8HR [facility] Last Admin: 03/23/18 05:52 Dose: 60 mg Diltiazem HCl 125 mg/ Sodium (Chloride) 125 mls @ 5 mls/hr IV Q24H RENE; Protocol Last Admin: 03/23/18 11:33 Dose: 5 mg/hr, 5 mls/hr Ondansetron HCl (Zofran) 4 mg IVPUSH Q4H PRN PRN Reason: Nausea Last Admin: 03/23/18 11:18 Dose: 4 mg Rivaroxaban (Xarelto) 20 mg PO DAILY@0800 [facility] Last Admin: 03/23/18 08:30 Dose: 20 mg Discontinued Medications Ceftriaxone Sodium (Rocephin) 1,000 mg IVPUSH ONETIME ONE Stop: 03/22/18 03:43 Last Admin: 03/22/18 05:51 Dose: Not Given Digoxin (Lanoxin) 500 mcg IVPUSH ONETIME ONE Stop: 03/22/18 02:35 Last Admin: 03/22/18 02:41 Dose: 500 mcg Diltiazem HCl (Diltiazem) 20 mg IVPUSH ONETIME ONE Stop: 03/22/18 01:32 Last Admin: 03/22/18 01:39 Dose: 20 mg Diltiazem HCl (Diltiazem) 10 mg IVPUSH ONETIME ONE Stop: 03/22/18 08:52 Last Admin: 03/22/18 09:01 Dose: 10 mg Enoxaparin Sodium (Lovenox) 40 mg SUBCUT Q24H [facility] Last Admin: 03/22/18 04:59 Dose: 40 mg Heparin Sodium (Porcine) (Heparin Sodium) 5,000 units SUBCUT Q12H [facility] Diltiazem HCl 125 mg/ Sodium (Chloride) 125 mls @ 5 mls/hr IV NOW ONE; Protocol Stop: 03/23/18 02:46 Last Infusion: 03/22/18 02:29 Dose: 0 mg/hr, 0 mls/hr Sodium Chloride (Normal Saline) 1,000 mls @ 999 mls/hr IV .Bolus ONE Stop: 03/22/18 02:47 Last Infusion: 03/22/18 02:29 Dose: 999 mls/hr Potassium Chloride/Sodium Chloride (Normal Saline With 40 Meq Kcl) 1,000 mls @ 100 mls/hr IV ASDIRECTED RENE Stop: 03/22/18 13:14 Last Admin: 03/22/18 04:47 Dose: 100 mls/hr Sodium Chloride (Normal Saline) 1,000 mls @ 125 mls/hr IV ONETIME ONE Stop: 03/22/18 11:06 Last Infusion: 03/22/18 04:47 Dose: 0 mls/hr Diltiazem HCl 125 mg/ Sodium (Chloride) 125 mls @ 5 mls/hr IV NOW ONE; Protocol Stop: 03/23/18 04:28 Last Admin: 03/22/18 04:44 Dose: Not Given Esmolol HCl 2,500 mg/ Sodium (Chloride) 500 mls @ 47.28 mls/hr IV TITRATE RENE; Protocol Ceftriaxone Sodium/Dextrose (Rocephin In Dextrose,Iso-Osm 1 Gm/50 Ml) 50 mls @ 200 mls/hr IV ONETIME ONE Stop: 03/22/18 04:14 Last Admin: 03/22/18 04:45 Dose: 200 mls/hr Esmolol HCl 1,000 mg/ Sodium (Chloride) 200 mls @ 47.28 mls/hr IV TITRATE RENE; Protocol Esmolol HCl 1,000 mg/ Sodium (Chloride) 100 mls @ 23.64 mls/hr IV TITRATE RENE; Protocol Sodium Chloride (Normal Saline) 500 mls @ 999 mls/hr IV ASDIRECTED [facility] Last Admin: 03/22/18 18:40 Dose: 999 mls/hr Metoprolol Tartrate (Lopressor) 5 mg IV ONETIME ONE Stop: 03/22/18 14:16 Last Admin: 03/22/18 15:39 Dose: Not Given Potassium Chloride (Klor-Con M20) 40 meq PO ONETIME ONE Stop: 03/22/18 03:02 Last Admin: 03/22/18 04:44 Dose: 40 meq - Exam General: Alert, Oriented HEENT: Pupils Equal Neck: Supple, Other Lungs: Clear to Auscultation Cardiovascular: Tachycardia GI/Abdominal Exam: Normal Bowel Sounds, Soft Extremities: No Pedal Edema, Normal Capillary Refill - Problem List Review Problem List Initiated/Reviewed/Updated: Yes - My Orders Last 24 Hours: My Active Orders 03/23/18 08:00 Echo Comp wo Cont [US] Routine Rivaroxaban [Xarelto] 20 mg PO DAILY@0800 03/23/18 10:45 Diltiazem 125 mg Sodium Chloride 0.9% [Normal Saline] 100 ml IV Q24H 03/23/18 10:46 Ondansetron [Zofran] 4 mg IVPUSH Q4H PRN 03/23/18 11:30 Consult to Physician [CONS] Routine 03/23/18 11:31 Notify Provider Consults [RC] ASDIRECTED - Plan Plan:: 88 yo female admitted with atrial fibrilation with RVR a.fib with RVR: patient has received digoxin, replacing potassium, will try esmolol drip for rate control leukocytosis/chills, UA and cultures pending, will give IV rocephin Assessment: #1. A. Fibrillation with RVR #2. Nausea #3. History of HTN, A. Fib Plan: #1. Titrate Cardizem drip to better control tachycardia. Increase PO Cardizem to 90mg q8h #2. PRN Zofran for nausea #3. F/u Echo once available #4. EKG #5. Consult cardiology. Dr. Yung is aware of the case. Thank you for the recommendations
[2018-03-23] MEDS ORDERED: Diltiazem IR 30 MG Tab PO SCH (11:46)
[2018-03-23] MEDS ORDERED: Diltiazem IR 30 MG Tab PO ONE (14:39)
--- NOTE | 2018-03-23 15:13 | CR ---
EXAM DATE: 03/22/18 PATIENT'S AGE: 88 Patient: CELESTE MCKEON Facility: [place], [place] Site . Site : [id number] Study: XRay Chest [id number]/10/2018 2:32:27 AM Ordering Physician: Doctor Raymundo Final Report: Indication: Chest pain Technique: Chest 1 view Comparison: None Findings/Impression: Cardiovascular and mediastinum: Mild cardiomegaly. An ectatic, unfolded aorta. Lungs and pleural space: Minor subsegmental atelectasis or scarring in the lateral left lower lung. No consolidation or pleural effusions. No gross pneumothorax seen. Bones and soft tissues: No significant findings. Dictated by Leo Nix MD @ 03/22/2018 2:43:36 AM Dictated by: Leo Nix MD @ 03/22/2018 02:43:42 (Electronic Signature) Report Signed by Proxy. [facility] HOSPITALDeyanira
--- NOTE | 2018-03-23 16:01 | PCM.PRNOTE ---
- Free Text/Narrative Note: Prelim echo preserved EF 60% mild AR, mild TR, trace MR biatrial enlargement, preserved RV systolic function
--- NOTE | 2018-03-23 16:53 | CT ---
EXAMINATION: CTA chest HISTORY: Rule out PE COMPARISON: None TECHNIQUE: Axial CT images obtained through the chest following the administration of 50 mL of Isovue -370 in the right antecubital fossa. Coronal and sagittal reconstructions obtained. FINDINGS: Mild interlobular septal thickening noted most prominent within the apices and lung bases. A few patchy nodular areas of groundglass also noted bilaterally. No pleural effusion or pneumothorax . The heart is normal in size without a pericardial effusion. Thoracic aorta is normal in caliber. Ma in pulmonary artery is enlarged measuring 4.9 cm. No pulmonary embolism identified. Small hiatal diandra ia. No mediastinal lymphadenopathy. Mild hilar prominence bilaterally. No axillary lymphadenopathy.. Mild coronary artery calcifications. Visualized images of the upper abdomen appear normal. No suspicious osseous abnormalities. IMPRESSION: 1. No pulmonary embolism identified. 2. Interlobular septal thickening and minimal scattered areas of groundglass. Correlate clinically fo r pulmonary edema. 3. Enlargement of the main pulmonary artery, correlate for pulmonary valve stenosis. 4. Small hiatal hernia.
[2018-03-23] MEDS ORDERED: Iopamidol 755 MG/ML 500 ML Multipack Bottle IVPUSH STA (17:04)
--- NOTE | 2018-03-23 19:12 | CONS ---
DATE OF CONSULTATION: DATE OF : 1930 PRIMARY CARE PHYSICIAN: None PCP REASON FOR CONSULTATION: Atrial fibrillation, RVR. HISTORY OF PRESENT ILLNESS: The patient is an 88-year-old female who has a history of hypertension, anxiety, history of paroxysmal atrial fibrillation, but she is not on any blood thinners. Yesterday when she woke up, she started feeling tired as well as heavy breathing as well as she felt like a rock on her chest. She did not feel much of a heart racing. However, it was noted initially that she also felt palpitation. In the emergency room, she was found to have an atrial fibrillation and RVR. She was given IV Diltiazem 20 mg and her blood pressure was dropped to 70 systolic. She then given the IV fluid and blood pressure improved. Digoxin was given 2 weeks ago. She also was treated for UTI. Apparently, her primary care doctor is Damaris Coronado. She has not been seen, maybe at least a year. She was seen by leather seasoner in the past, but a long time ago for atrial fibrillation, but she did not see them for a long period of time. She had a stress test several years ago and she was told everything was normal. Denied history of a heart attack, heart failure. PAST MEDICAL HISTORY: Including paroxysmal atrial fibrillation, hypertension, anxiety. Denies history of diabetes. Denies history of dyslipidemia. Denies history of a stroke as well. SOCIAL HISTORY: She is nonsmoker. No drug use. No alcohol use. FAMILY HISTORY: No family history of CAD. ALLERGIES: She is allergic to neomycin, Bactrim. REVIEW OF SYSTEMS: Except indicated in the HPI, otherwise has been negative. HOME MEDICATIONS: Includin. Diltiazem 120 mg once a day. 2. Hydrochlorothiazide and triamterene 25/37.5 p.o. once a day. 3. Quinapril 20 mg once a day. PHYSICAL EXAMINATION: VITAL SIGNS: Initial blood pressure was 127, it fluctuated down to 60 to 80 and currently has come back up to like 148. The blood pressure is hanging around 110 to 140 over 50 to 70, and O2 saturation is staying around like 91 to 95 on room air, respirations 15 to 17, temperature 36.1. HEENT: Not pale, no jaundice. NECK: Cannot appreciate JVD. HEART: Normal S1, S2, totally irregular, tachycardia. LUNGS: Minimal crackle, bibasilar. ABDOMEN: Soft, nontender. Bowel sounds are present. No hepatosplenomegaly. LEGS: No edema. EMERGENCY TREATMENT: She was given Diltiazem 20 mg IV push in the emergency room. However, the blood pressure dropped to 70, but it is improving afterwards after IV fluid and she also was given 500 of IV push 1 time in the emergency room as well. She got 90 mg of the Diltiazem p.o. 1 time this morning and Diltiazem IV drip was started. Right now she is on 10 mg/hour. She also was given 5 mg IV push for the heart rate as well. EKG is pending. Echocardiogram shows preserved ejection fraction. Trace MR and mild TR. RVSP at least 44 + RAP, and also biatrial enlargement. Mild AR as well. The current CBC showed WBC 7, hematocrit of 37, hemoglobin is 12, platelet 296. Lactate was high at 2.6, but right now came down to 0.9. Sodium 140, potassium 4.1, chloride 105, bicarb 28, BUN 21, creatinine 1.1. Troponin was negative x1. TSH was normal. ASSESSMENT AND PLAN: This is an 88-year-old female with history of hypertension and paroxysmal atrial fibrillation, presented to the hospital with symptomatic atrial fibrillation RVR with shortness of breath, mild hypoxia. I will increase the Diltiazem. I will give another dose of 90 mg of Diltiazem and possibly increase to 180 twice a day and I will increase the Diltiazem IV drip from 10 mg/hour to 12.5 mg/hour. She already was given Xarelto 20 mg once a day for stroke prevention. Her Chads Vasc score is at least 4 including age, gender, and hypertension. Her echocardiogram seemed to be no significant valvular abnormality, but her ejection fraction is preserved. Because of the chest pain during the atrial fibrillation RVR, I recommend to have this stress test to be done, but this can be done as an outpatient. Troponin has been negative so far and EKG is still pending. Due to also mild hypoxia, she denied history of smoking or having COPD before, what I would like to do also to do the CT angiogram to rule out acute PE. LENNY / GURPREET /[id number]
[2018-03-23] MEDS: Diltiazem 180 MG Cap.CD PO SCH (20:09)
[2018-03-24] MEDS ORDERED: Diltiazem 100 MG in Sodium Chloride 0.9% 100 ML IV SCH (00:01)
[2018-03-24] MEDS ORDERED: Metoprolol Tartrate 5 MG/5 ML SDV IVPUSH ONE (04:29)
[2018-03-24] MEDS ORDERED: Furosemide 20 MG/2 ML VIAL IVPUSH ONE ×2 (09:00→18:15)
[2018-03-24] MEDS: Rivaroxaban 10 MG Tab PO SCH (09:09)
[2018-03-24] MEDS ORDERED: Magnesium Sulfate/Water 2 GM in Premix Bag 1 BAG IV ONE (09:38)
[2018-03-24] MEDS ORDERED: Potassium Chloride 20 MEQ Tab.ER PO ONE (09:38)
[2018-03-24] MEDS ORDERED: Digoxin 500 MCG/2 ML Amp IVPUSH ONE (09:50)
[2018-03-24] MEDS ORDERED: Diltiazem 180 MG Cap.CD PO ONE (11:43)
--- NOTE | 2018-03-24 13:40 | ECHO ---
EXAM DATE: 03/22/18 PATIENT'S AGE: 88 The echocardiogram report can be seen in this patient's EMR (Electronic Medical Record) in the Reports section. The report has also been scanned into PACs. JIMENA
[2018-03-24] MEDS: Diltiazem 180 MG Cap.CD PO SCH ×2 (18:21→21:06)
--- NOTE | 2018-03-24 19:50 | PCM.PN ---
- General Info Date of Service: 03/24/18 - Review of Systems Systems Review Comment:: feeling better - Patient Data Vitals - Most Recent: Last Vital Signs Temp 36.6 C 03/24/18 16:00 Pulse 132 H 03/24/18 04:40 Resp 20 03/24/18 19:00 BP 117/59 L 03/24/18 19:00 Pulse Ox 92 L 03/24/18 19:00 Weight - Most Recent: 78.3 kg I&O - Last 24 Hours: Intake & Output 03/24/18 03/24/18 03/24/18 06:59 14:59 22:59 Intake Total 750 1830 500 Output Total 1750 975 200 Balance -1000 855 300 Lab Results Last 24 Hours: Laboratory Results - last 24 hr 03/24/18 03/24/18 03/24/18 Range/Units 05:12 05:12 05:12 WBC 12.84 H (4.0-11.0) K/uL RBC 4.31 (4.30-5.90) M/uL Hgb 12.9 (12.0-16.0) g/dL Hct 39.4 (36.0-46.0) % MCV 91.4 (80.0-98.0) fL MCH 29.9 (27.0-32.0) pg MCHC 32.7 (31.0-37.0) g/dL RDW Std Deviation 45.1 (28.0-62.0) fl RDW Coeff of Ranjit 14 (11.0-15.0) % Plt Count 320 (150-400) K/uL MPV 9.40 (7.40-12.00) fL Neut % (Auto) 81.2 H (48.0-80.0) % Lymph % (Auto) 13.1 L (16.0-40.0) % [place] % (Auto) 5.3 (0.0-15.0) % Eos % (Auto) 0.2 (0.0-7.0) % Baso % (Auto) 0.2 (0.0-1.5) % Neut # (Auto) 10.4 H (1.4-5.7) K/uL Lymph # (Auto) 1.7 (0.6-2.4) K/uL [place] # (Auto) 0.7 (0.0-0.8) K/uL Eos # (Auto) 0.0 (0.0-0.7) K/uL Baso # (Auto) 0.0 (0.0-0.1) K/uL Nucleated RBC % 0.0 /100WBC Nucleated RBCs # 0 K/uL Sodium 137 (136-145) mmol/L Potassium 3.8 (3.5-5.1) mmol/L Chloride 102 (98-107) mmol/L Carbon Dioxide 28.4 (21.0-32.0) mmol/L BUN 17 (7.0-18.0) mg/dL Creatinine 1.1 H (0.6-1.0) mg/dL Est Cr Clr Drug Dosing 30.53 mL/min Estimated GFR (MDRD) 46.9 ml/min Glucose 122 H (74-106) mg/dL Calcium 8.4 L (8.5-10.1) mg/dL Magnesium 1.8 (1.8-2.4) mg/dL Urine Color Urine Appearance Urine pH (5.0-8.0) Ur Specific [place] (1.001-1.035) Urine Protein (NEGATIVE) mg/dL Urine Glucose (UA) (NEGATIVE) mg/dL Urine Ketones (NEGATIVE) mg/dL Urine Occult Blood (NEGATIVE) Urine Nitrite (NEGATIVE) Urine Bilirubin (NEGATIVE) Urine Urobilinogen (<2.0) EU/dL Ur Leukocyte Esterase (NEGATIVE) Urine RBC (0-2/HPF) Urine WBC (0-5/HPF) Ur Epithelial Cells (NONE-FEW) Amorphous Sediment (NEGATIVE) Urine Bacteria (NEGATIVE) 03/24/18 Range/Units 14:13 WBC (4.0-11.0) K/uL RBC (4.30-5.90) M/uL Hgb (12.0-16.0) g/dL Hct (36.0-46.0) % MCV (80.0-98.0) fL MCH (27.0-32.0) pg MCHC (31.0-37.0) g/dL RDW Std Deviation (28.0-62.0) fl RDW Coeff of Ranjit (11.0-15.0) % Plt Count (150-400) K/uL MPV (7.40-12.00) fL Neut % (Auto) (48.0-80.0) % Lymph % (Auto) (16.0-40.0) % [place] % (Auto) (0.0-15.0) % Eos % (Auto) (0.0-7.0) % Baso % (Auto) (0.0-1.5) % Neut # (Auto) (1.4-5.7) K/uL Lymph # (Auto) (0.6-2.4) K/uL [place] # (Auto) (0.0-0.8) K/uL Eos # (Auto) (0.0-0.7) K/uL Baso # (Auto) (0.0-0.1) K/uL Nucleated RBC % /100WBC Nucleated RBCs # K/uL Sodium (136-145) mmol/L Potassium (3.5-5.1) mmol/L Chloride (98-107) mmol/L Carbon Dioxide (21.0-32.0) mmol/L BUN (7.0-18.0) mg/dL Creatinine (0.6-1.0) mg/dL Est Cr Clr Drug Dosing mL/min Estimated GFR (MDRD) ml/min Glucose (74-106) mg/dL Calcium (8.5-10.1) mg/dL Magnesium (1.8-2.4) mg/dL Urine Color YELLOW Urine Appearance CLEAR Urine pH 6.0 (5.0-8.0) Ur Specific [place] 1.010 (1.001-1.035) Urine Protein NEGATIVE (NEGATIVE) mg/dL Urine Glucose (UA) NEGATIVE (NEGATIVE) mg/dL Urine Ketones NEGATIVE (NEGATIVE) mg/dL Urine Occult Blood TRACE-LYSED (NEGATIVE) Urine Nitrite NEGATIVE (NEGATIVE) Urine Bilirubin NEGATIVE (NEGATIVE) Urine Urobilinogen 0.2 (<2.0) EU/dL Ur Leukocyte Esterase NEGATIVE (NEGATIVE) Urine RBC 0-1 (0-2/HPF) Urine WBC 0-1 (0-5/HPF) Ur Epithelial Cells RARE (NONE-FEW) Amorphous Sediment FEW (NEGATIVE) Urine Bacteria FEW (NEGATIVE) Gilberto Results Last 24 Hours: Microbiology 03/22/18 03:20 Urine Culture - Final Urine, Bladder MIXED KARI >100,000 CFU/ML 03/22/18 03:59 Aerobic Blood Culture - Preliminary Blood - Venous - Lab Draw NO GROWTH AFTER 2 DAYS Anaerobic Blood Culture - Preliminary NO GROWTH AFTER 2 DAYS 03/22/18 03:55 Aerobic Blood Culture - Preliminary Blood - Venous NO GROWTH AFTER 2 DAYS Anaerobic Blood Culture - Preliminary NO GROWTH AFTER 2 DAYS Med Orders - Current: Current Medications Diltiazem HCl (Cardizem Cd) 180 mg PO BEDTIME [facility] Last Admin: 03/24/18 18:21 Dose: 180 mg Diltiazem HCl 100 mg/ Sodium (Chloride) 100 mls @ 12.5 mls/hr IV ASDIRECTED [facility] ; Protocol Last Titration: 03/24/18 11:57 Dose: 5 mg/hr, 5 mls/hr Ondansetron HCl (Zofran) 4 mg IVPUSH Q4H PRN PRN Reason: Nausea Last Admin: 03/23/18 11:18 Dose: 4 mg Rivaroxaban (Xarelto) 20 mg PO DAILY@0800 [facility] Last Admin: 03/24/18 09:09 Dose: 20 mg Discontinued Medications Ceftriaxone Sodium (Rocephin) 1,000 mg IVPUSH ONETIME ONE Stop: 03/22/18 03:43 Last Admin: 03/22/18 05:51 Dose: Not Given Digoxin (Lanoxin) 500 mcg IVPUSH ONETIME ONE Stop: 03/22/18 02:35 Last Admin: 03/22/18 02:41 Dose: 500 mcg Digoxin (Lanoxin) 250 mcg IVPUSH ONETIME ONE Stop: 03/24/18 09:51 Last Admin: 03/24/18 10:24 Dose: 250 mcg Diltiazem HCl (Diltiazem) 20 mg IVPUSH ONETIME ONE Stop: 03/22/18 01:32 Last Admin: 03/22/18 01:39 Dose: 20 mg Diltiazem HCl (Diltiazem) 10 mg IVPUSH ONETIME ONE Stop: 03/22/18 08:52 Last Admin: 03/22/18 09:01 Dose: 10 mg Diltiazem HCl (Cardizem) 60 mg PO Q8HR [facility] Last Admin: 03/23/18 05:52 Dose: 60 mg Diltiazem HCl (Cardizem) 90 mg PO Q8HR [facility] Last Admin: 03/23/18 12:22 Dose: Not Given Diltiazem HCl (Cardizem) 90 mg PO Q8HR [facility] Last Admin: 03/23/18 13:12 Dose: 90 mg Diltiazem HCl (Cardizem) 90 mg PO ONETIME ONE Stop: 03/23/18 14:40 Last Admin: 03/23/18 14:47 Dose: 90 mg Diltiazem HCl (Cardizem Cd) 180 mg PO ONETIME ONE Stop: 03/24/18 11:44 Last Admin: 03/24/18 11:56 Dose: 180 mg Enoxaparin Sodium (Lovenox) 40 mg SUBCUT Q24H [facility] Last Admin: 03/22/18 04:59 Dose: 40 mg Furosemide (Lasix) 20 mg IVPUSH ONETIME ONE Stop: 03/24/18 09:01 Last Admin: 03/24/18 09:09 Dose: 20 mg Furosemide (Lasix) 20 mg IVPUSH NOW ONE Stop: 03/24/18 18:16 Last Admin: 03/24/18 18:21 Dose: 20 mg Heparin Sodium (Porcine) (Heparin Sodium) 5,000 units SUBCUT Q12H [facility] Diltiazem HCl 125 mg/ Sodium (Chloride) 125 mls @ 5 mls/hr IV NOW ONE; Protocol Stop: 03/23/18 02:46 Last Infusion: 03/22/18 02:29 Dose: 0 mg/hr, 0 mls/hr Sodium Chloride (Normal Saline) 1,000 mls @ 999 mls/hr IV .Bolus ONE Stop: 03/22/18 02:47 Last Infusion: 03/22/18 02:29 Dose: 999 mls/hr Potassium Chloride/Sodium Chloride (Normal Saline With 40 Meq Kcl) 1,000 mls @ 100 mls/hr IV ASDIRECTED [facility] Stop: 03/22/18 13:14 Last Admin: 03/22/18 04:47 Dose: 100 mls/hr Sodium Chloride (Normal Saline) 1,000 mls @ 125 mls/hr IV ONETIME ONE Stop: 03/22/18 11:06 Last Infusion: 03/22/18 04:47 Dose: 0 mls/hr Diltiazem HCl 125 mg/ Sodium (Chloride) 125 mls @ 5 mls/hr IV NOW ONE; Protocol Stop: 03/23/18 04:28 Last Admin: 03/22/18 04:44 Dose: Not Given Esmolol HCl 2,500 mg/ Sodium (Chloride) 500 mls @ 47.28 mls/hr IV TITRATE RENE; Protocol Ceftriaxone Sodium/Dextrose (Rocephin In Dextrose,Iso-Osm 1 Gm/50 Ml) 50 mls @ 200 mls/hr IV ONETIME ONE Stop: 03/22/18 04:14 Last Admin: 03/22/18 04:45 Dose: 200 mls/hr Esmolol HCl 1,000 mg/ Sodium (Chloride) 200 mls @ 47.28 mls/hr IV TITRATE RENE; Protocol Esmolol HCl 1,000 mg/ Sodium (Chloride) 100 mls @ 23.64 mls/hr IV TITRATE RENE; Protocol Sodium Chloride (Normal Saline) 500 mls @ 999 mls/hr IV ASDIRECTED RENE Last Admin: 03/22/18 18:40 Dose: 999 mls/hr Diltiazem HCl 125 mg/ Sodium (Chloride) 125 mls @ 5 mls/hr IV Q24H RENE; Protocol Last Infusion: 03/24/18 01:55 Dose: 15 mg/hr, 15 mls/hr Diltiazem HCl 100 mg/ Sodium (Chloride) 120 mls @ 15 mls/hr IV Q24H RENE; Protocol Last Admin: 03/24/18 00:05 Dose: Not Given Magnesium Sulfate 2 gm/ Premix 50 mls @ 50 mls/hr IV ONETIME ONE Stop: 03/24/18 10:37 Last Admin: 03/24/18 10:25 Dose: 50 mls/hr Iopamidol (Isovue Multipack-370 (76%)) 50 ml IVPUSH ONETIME STA Stop: 03/23/18 17:05 Last Admin: 03/23/18 17:05 Dose: 50 ml Metoprolol Tartrate (Lopressor) 5 mg IV ONETIME ONE Stop: 03/22/18 14:16 Last Admin: 03/22/18 15:39 Dose: Not Given Metoprolol Tartrate (Lopressor) 5 mg IVPUSH ONETIME ONE Stop: 03/24/18 04:30 Last Admin: 03/24/18 04:40 Dose: 5 mg Potassium Chloride (Klor-Con M20) 40 meq PO ONETIME ONE Stop: 03/22/18 03:02 Last Admin: 03/22/18 04:44 Dose: 40 meq Potassium Chloride (Klor-Con M20) 40 meq PO ONETIME ONE Stop: 03/24/18 09:39 Last Admin: 03/24/18 10:29 Dose: 40 meq - Exam General: Alert, Oriented Neck: Supple Lungs: Clear to Auscultation, Normal Respiratory Effort Cardiovascular: Irregular Rhythm, Tachycardia GI/Abdominal Exam: Soft, Non-Tender, No Distention Extremities: Non-Tender, No Pedal Edema Skin: Warm, Dry, Intact - Problem List Review Problem List Initiated/Reviewed/Updated: Yes - My Orders Last 24 Hours: My Active Orders 03/24/18 00:15 Diltiazem 100 mg Sodium Chloride 0.9% [Normal Saline] 80 ml IV ASDIRECTED - Plan Plan:: 88 yo female admitted with atrial fibrilation with RVR A.fib: on Xarelto, increasing diltiazem to 180mg PO, replacing magnesium and gave 250 mg of digoxin. Will titrate down diltiazem drip as tolerated
[2018-03-25] MEDS: Rivaroxaban 10 MG Tab PO SCH (08:27)
[2018-03-25] MEDS ORDERED: Furosemide 20 MG Tab PO ONE (08:41)
[2018-03-25] MEDS ORDERED: Potassium Chloride 20 MEQ Tab.ER PO ONE (08:44)
[2018-03-25 10:02] VITALS: BP 113/60
--- NOTE | 2018-03-25 11:27 | PCM.DCSUM1 ---
Discharge Summary - Hospital Course Free Text/Narrative:: Admission date: 03/22/2018 Discharge date: 03/25/2018 Admission diagnosis: #1. A. Fibrillation w/ RVR #2. Leukocytosis #3. Hx of a. fib, htn, anxiety #4. Hypoxia Discharge diagnosis: #1. A. Fibrillation w/ RVR - now sinus and regular rate #2. Leukocytosis - resolved #3. Hypoxia - resolved satting >92% on room air prior to the discharge #4. hx of a. fib, htn, anxiety Consults: Cardiology, Dr. March Imaging studies: CT Angiography, Echocardiogram Hospital course: 88F with the above mentioned history presented to the ER on for the above mentioned reason. She was admitted to the ICU, initiated on initially an esmolol drip, which was discontinued by e-icu and she was started on PO cardizem split into q8h intervals. Initial concerns of a possible UTI given leukocytosis so she was started on IV rocephin, however once UA was obtained this was discontinued. She remained tachycardic. Thus, patient was placed on cardizem drip titrated upto at one point 15mg/hr. This was titrated down, while her oral dose was increased. She tolerated 180mg PO Cardizem BID well and was taken off of the cardizem drip. Given her CHADS score she was started on Xarelto. As per cardiology, she was also started on 10mg of Lasix daily. A CT angio was ordered by cardiology given concerning signs of a possible PE which was negative. She is to f/u with myself and Dr. March , cardiology upon discharge. - Discharge Data Discharge Date: 03/25/18 Discharge Disposition: Home, Self-Care 01 Condition: Stable - Patient Summary/Data Consults: Consultations 03/23/18 11:30 Consult to Physician [CONS] Routine - Patient Instructions Diet: Usual Diet as Tolerated Activity: As Tolerated Notify Provider of: Fever, Increased Pain, Swelling and Redness, Drainage, Nausea and/or Vomiting Other/Special Instructions: chest pain, palpitations - Discharge Plan Prescriptions/Med Rec: Diltiazem [Cardizem CD] 180 mg PO BID 30 Days #60 cap.er Furosemide [Lasix] 10 mg PO DAILY 30 Days #30 tab Rivaroxaban [Xarelto] 20 mg PO DAILY@0800 30 Days #30 tablet Home Medications: Home Meds Estradiol 1 patch .ROUTE ASDIRECTED 10/21/14 [History] HCTZ/Triamterene [Maxzide 25-37.5 MG] 25 - 37.5 mg PO BRK 10/21/14 [History] Quinapril HCl 20 mg PO BRK 10/21/14 [History] Ranitidine [Zantac] 150 mg PO DAILY 10/21/14 [History] LORazepam 0.5 mg PO TID PRN 11/17/14 [History] Loratadine 10 mg PO DAILY PRN 11/17/14 [History] Multivitamin [Multi-Vitamin Daily] 1 tab PO DAILY 02/09/15 [History] Diltiazem [Cardizem CD] 180 mg PO BID 30 Days #60 cap.er 03/25/18 [Rx] Furosemide [Lasix] 10 mg PO DAILY 30 Days #30 tab 03/25/18 [Rx] Rivaroxaban [Xarelto] 20 mg PO DAILY@0800 30 Days #30 tablet 03/25/18 [Rx] Patient Handouts: Diltiazem extended-release capsules or tablets, Furosemide tablets, Rivaroxaban oral tablets, Diltiazem tablets, Atrial Fibrillation, Easy- to-Read Forms: ED Department Discharge Referrals: Jacquelin March MD [Physician] - 04/03/18 9:30 am Alirio Vera MD [Resident] - 03/31/18 3:30 pm PCP,None [Primary Care Provider] - - Discharge Summary/Plan Comment Discharge Summary/Plan Comment: Admission date: 03/22/2018 Discharge date: 03/25/2018 Admission diagnosis: #1. A. Fibrillation w/ RVR #2. Leukocytosis #3. Hx of a. fib, htn, anxiety #4. Hypoxia Discharge diagnosis: #1. A. Fibrillation w/ RVR - now sinus and regular rate #2. Leukocytosis - resolved #3. Hypoxia - resolved satting >92% on room air prior to the discharge #4. hx of a. fib, htn, anxiety Consults: Cardiology, Dr. March Imaging studies: CT Angiography, Echocardiogram Hospital course: 88F with the above mentioned history presented to the ER on for the above mentioned reason. She was admitted to the ICU, initiated on initially an esmolol drip, which was discontinued by e-icu and she was started on PO cardizem split into q8h intervals. Initial concerns of a possible UTI given leukocytosis so she was started on IV rocephin, however once UA was obtained this was discontinued. She remained tachycardic. Thus, patient was placed on cardizem drip titrated upto at one point 15mg/hr. This was titrated down, while her oral dose was increased. She tolerated 180mg PO Cardizem BID well and was taken off of the cardizem drip. Given her CHADS score she was started on Xarelto. As per cardiology, she was also started on 10mg of Lasix daily. A CT angio was ordered by cardiology given concerning signs of a possible PE which was negative. She is to f/u with myself and Dr. March , cardiology upon discharge. - Patient Data Vitals - Most Recent: Last Vital Signs Temp 36.6 C 03/25/18 08:00 Pulse 132 H 03/24/18 04:40 Resp 12 03/25/18 10:30 BP 113/60 03/25/18 10:00 Pulse Ox 94 L 03/25/18 10:30 Weight - Most Recent: 78.7 kg I&O - Last 24 hours: Intake & Output 03/24/18 03/25/18 03/25/18 22:59 06:59 14:59 Intake Total 500 747 640 Output Total 200 2800 Balance 300 -2053 640 Lab Results - Last 24 hrs: Laboratory Results - last 24 hr 03/24/18 03/25/18 03/25/18 Range/Units 14:13 05:04 05:04 WBC 9.13 (4.0-11.0) K/uL RBC 4.06 L (4.30-5.90) M/uL Hgb 12.3 (12.0-16.0) g/dL Hct 37.3 (36.0-46.0) % MCV 91.9 (80.0-98.0) fL MCH 30.3 (27.0-32.0) pg MCHC 33.0 (31.0-37.0) g/dL RDW Std Deviation 44.9 (28.0-62.0) fl RDW Coeff of Ranjit 14 (11.0-15.0) % Plt Count 282 (150-400) K/uL MPV 9.40 (7.40-12.00) fL Neut % (Auto) 71.5 (48.0-80.0) % Lymph % (Auto) 19.6 (16.0-40.0) % Hand % (Auto) 7.8 (0.0-15.0) % Eos % (Auto) 0.9 (0.0-7.0) % Baso % (Auto) 0.2 (0.0-1.5) % Neut # (Auto) 6.5 H (1.4-5.7) K/uL Lymph # (Auto) 1.8 (0.6-2.4) K/uL Hand # (Auto) 0.7 (0.0-0.8) K/uL Eos # (Auto) 0.1 (0.0-0.7) K/uL Baso # (Auto) 0.0 (0.0-0.1) K/uL Nucleated RBC % 0.0 /100WBC Nucleated RBCs # 0 K/uL Sodium 136 (136-145) mmol/L Potassium 3.5 (3.5-5.1) mmol/L Chloride 101 (98-107) mmol/L Carbon Dioxide 28.8 (21.0-32.0) mmol/L BUN 18 (7.0-18.0) mg/dL Creatinine 1.0 (0.6-1.0) mg/dL Est Cr Clr Drug Dosing 33.58 mL/min Estimated GFR (MDRD) 52.3 ml/min Glucose 100 (74-106) mg/dL Calcium 8.1 L (8.5-10.1) mg/dL Urine Color YELLOW Urine Appearance CLEAR Urine pH 6.0 (5.0-8.0) Ur Specific [place] 1.010 (1.001-1.035) Urine Protein NEGATIVE (NEGATIVE) mg/dL Urine Glucose (UA) NEGATIVE (NEGATIVE) mg/dL Urine Ketones NEGATIVE (NEGATIVE) mg/dL Urine Occult Blood TRACE-LYSED (NEGATIVE) Urine Nitrite NEGATIVE (NEGATIVE) Urine Bilirubin NEGATIVE (NEGATIVE) Urine Urobilinogen 0.2 (<2.0) EU/dL Ur Leukocyte Esterase NEGATIVE (NEGATIVE) Urine RBC 0-1 (0-2/HPF) Urine WBC 0-1 (0-5/HPF) Ur Epithelial Cells RARE (NONE-FEW) Amorphous Sediment FEW (NEGATIVE) Urine Bacteria FEW (NEGATIVE) REGINA Results - Last 24 hrs: Microbiology 03/22/18 03:59 Aerobic Blood Culture - Preliminary Blood - Venous - Lab Draw NO GROWTH AFTER 3 DAYS Anaerobic Blood Culture - Preliminary NO GROWTH AFTER 3 DAYS 03/22/18 03:55 Aerobic Blood Culture - Preliminary Blood - Venous NO GROWTH AFTER 3 DAYS Anaerobic Blood Culture - Preliminary NO GROWTH AFTER 3 DAYS 03/22/18 03:20 Urine Culture - Final Urine, Bladder MIXED KARI >100,000 CFU/ML Med Orders - Current: Current Medications Discontinued Medications Ceftriaxone Sodium (Rocephin) 1,000 mg IVPUSH ONETIME ONE Stop: 03/22/18 03:43 Last Admin: 03/22/18 05:51 Dose: Not Given Digoxin (Lanoxin) 500 mcg IVPUSH ONETIME ONE Stop: 03/22/18 02:35 Last Admin: 03/22/18 02:41 Dose: 500 mcg Digoxin (Lanoxin) 250 mcg IVPUSH ONETIME ONE Stop: 03/24/18 09:51 Last Admin: 03/24/18 10:24 Dose: 250 mcg Diltiazem HCl (Diltiazem) 20 mg IVPUSH ONETIME ONE Stop: 03/22/18 01:32 Last Admin: 03/22/18 01:39 Dose: 20 mg Diltiazem HCl (Diltiazem) 10 mg IVPUSH ONETIME ONE Stop: 03/22/18 08:52 Last Admin: 03/22/18 09:01 Dose: 10 mg Diltiazem HCl (Cardizem) 60 mg PO Q8HR COUNT INCLUDES THE [facility] Last Admin: 03/23/18 05:52 Dose: 60 mg Diltiazem HCl (Cardizem) 90 mg PO Q8HR COUNT INCLUDES THE [facility] Last Admin: 03/23/18 12:22 Dose: Not Given Diltiazem HCl (Cardizem) 90 mg PO Q8HR COUNT INCLUDES THE [facility] Last Admin: 03/23/18 13:12 Dose: 90 mg Diltiazem HCl (Cardizem) 90 mg PO ONETIME ONE Stop: 03/23/18 14:40 Last Admin: 03/23/18 14:47 Dose: 90 mg Diltiazem HCl (Cardizem Cd) 180 mg PO BEDTIME RENE Last Admin: 03/24/18 21:06 Dose: Not Given Diltiazem HCl (Cardizem Cd) 180 mg PO ONETIME ONE Stop: 03/24/18 11:44 Last Admin: 03/24/18 11:56 Dose: 180 mg Enoxaparin Sodium (Lovenox) 40 mg SUBCUT Q24H COUNT INCLUDES THE [facility] Last Admin: 03/22/18 04:59 Dose: 40 mg Furosemide (Lasix) 20 mg IVPUSH ONETIME ONE Stop: 03/24/18 09:01 Last Admin: 03/24/18 09:09 Dose: 20 mg Furosemide (Lasix) 20 mg IVPUSH NOW ONE Stop: 03/24/18 18:16 Last Admin: 03/24/18 18:21 Dose: 20 mg Furosemide (Lasix) 20 mg PO ONETIME ONE Stop: 03/25/18 08:42 Last Admin: 03/25/18 08:51 Dose: 20 mg Heparin Sodium (Porcine) (Heparin Sodium) 5,000 units SUBCUT Q12H COUNT INCLUDES THE [facility] Diltiazem HCl 125 mg/ Sodium (Chloride) 125 mls @ 5 mls/hr IV NOW ONE; Protocol Stop: 03/23/18 02:46 Last Infusion: 03/22/18 02:29 Dose: 0 mg/hr, 0 mls/hr Sodium Chloride (Normal Saline) 1,000 mls @ 999 mls/hr IV .Bolus ONE Stop: 03/22/18 02:47 Last Infusion: 03/22/18 02:29 Dose: 999 mls/hr Potassium Chloride/Sodium Chloride (Normal Saline With 40 Meq Kcl) 1,000 mls @ 100 mls/hr IV ASDIRECTED RENE Stop: 03/22/18 13:14 Last Admin: 03/22/18 04:47 Dose: 100 mls/hr Sodium Chloride (Normal Saline) 1,000 mls @ 125 mls/hr IV ONETIME ONE Stop: 03/22/18 11:06 Last Infusion: 03/22/18 04:47 Dose: 0 mls/hr Diltiazem HCl 125 mg/ Sodium (Chloride) 125 mls @ 5 mls/hr IV NOW ONE; Protocol Stop: 03/23/18 04:28 Last Admin: 03/22/18 04:44 Dose: Not Given Esmolol HCl 2,500 mg/ Sodium (Chloride) 500 mls @ 47.28 mls/hr IV TITRATE RENE; Protocol Ceftriaxone Sodium/Dextrose (Rocephin In Dextrose,Iso-Osm 1 Gm/50 Ml) 50 mls @ 200 mls/hr IV ONETIME ONE Stop: 03/22/18 04:14 Last Admin: 03/22/18 04:45 Dose: 200 mls/hr Esmolol HCl 1,000 mg/ Sodium (Chloride) 200 mls @ 47.28 mls/hr IV TITRATE RENE; Protocol Esmolol HCl 1,000 mg/ Sodium (Chloride) 100 mls @ 23.64 mls/hr IV TITRATE RENE; Protocol Sodium Chloride (Normal Saline) 500 mls @ 999 mls/hr IV ASDIRECTED RENE Last Admin: 03/22/18 18:40 Dose: 999 mls/hr Diltiazem HCl 125 mg/ Sodium (Chloride) 125 mls @ 5 mls/hr IV Q24H RENE; Protocol Last Infusion: 03/24/18 01:55 Dose: 15 mg/hr, 15 mls/hr Diltiazem HCl 100 mg/ Sodium (Chloride) 120 mls @ 15 mls/hr IV Q24H RENE; Protocol Last Admin: 03/24/18 00:05 Dose: Not Given Diltiazem HCl 100 mg/ Sodium (Chloride) 100 mls @ 12.5 mls/hr IV ASDIRECTED RENE ; Protocol Last Titration: 03/24/18 22:37 Dose: 0 mg/hr, 0 mls/hr Magnesium Sulfate 2 gm/ Premix 50 mls @ 50 mls/hr IV ONETIME ONE Stop: 03/24/18 10:37 Last Admin: 03/24/18 10:25 Dose: 50 mls/hr Iopamidol (Isovue Multipack-370 (76%)) 50 ml IVPUSH ONETIME STA Stop: 03/23/18 17:05 Last Admin: 03/23/18 17:05 Dose: 50 ml Metoprolol Tartrate (Lopressor) 5 mg IV ONETIME ONE Stop: 03/22/18 14:16 Last Admin: 03/22/18 15:39 Dose: Not Given Metoprolol Tartrate (Lopressor) 5 mg IVPUSH ONETIME ONE Stop: 03/24/18 04:30 Last Admin: 03/24/18 04:40 Dose: 5 mg Ondansetron HCl (Zofran) 4 mg IVPUSH Q4H PRN PRN Reason: Nausea Last Admin: 03/23/18 11:18 Dose: 4 mg Potassium Chloride (Klor-Con M20) 40 meq PO ONETIME ONE Stop: 03/22/18 03:02 Last Admin: 03/22/18 04:44 Dose: 40 meq Potassium Chloride (Klor-Con M20) 40 meq PO ONETIME ONE Stop: 03/24/18 09:39 Last Admin: 03/24/18 10:29 Dose: 40 meq Potassium Chloride (Klor-Con M20) 40 meq PO ONETIME ONE Stop: 03/25/18 08:45 Last Admin: 03/25/18 08:51 Dose: 40 meq Rivaroxaban (Xarelto) 20 mg PO DAILY@0800 RENE Last Admin: 03/25/18 08:27 Dose: 20 mg
--- NOTE | 2018-03-25 18:59 | PCM.PN ---
- General Info Date of Service: 03/25/18 Admission Dx/Problem (Free Text): 88F HTN anxeity PAF, with afib RVR, hypoxia Subjective Update: she felt well, she converted last night, now she is getting cardizem 180 BID, and lasix 20 IV BID yesterday Functional Status: Reports: Pain Controlled - Review of Systems General: Reports: No Symptoms HEENT: Reports: No Symptoms Pulmonary: Reports: No Symptoms Cardiovascular: Reports: No Symptoms Gastrointestinal: Reports: No Symptoms Genitourinary: Reports: No Symptoms Musculoskeletal: Reports: No Symptoms Skin: Reports: No Symptoms Neurological: Reports: No Symptoms Psychiatric: Reports: No Symptoms - Patient Data Vitals - Most Recent: Last Vital Signs Temp 36.6 C 03/25/18 08:00 Pulse 132 H 03/24/18 04:40 Resp 12 03/25/18 10:30 BP 113/60 03/25/18 10:00 Pulse Ox 94 L 03/25/18 10:30 Weight - Most Recent: 78.7 kg I&O - Last 24 Hours: Intake & Output 03/25/18 03/25/18 03/25/18 06:59 14:59 22:59 Intake Total 747 640 Output Total 2800 Balance -3 640 Lab Results Last 24 Hours: Laboratory Results - last 24 hr 03/25/18 03/25/18 Range/Units 05:04 05:04 WBC 9.13 (4.0-11.0) K/uL RBC 4.06 L (4.30-5.90) M/uL Hgb 12.3 (12.0-16.0) g/dL Hct 37.3 (36.0-46.0) % MCV 91.9 (80.0-98.0) fL MCH 30.3 (27.0-32.0) pg MCHC 33.0 (31.0-37.0) g/dL RDW Std Deviation 44.9 (28.0-62.0) fl RDW Coeff of Ranjit 14 (11.0-15.0) % Plt Count 282 (150-400) K/uL MPV 9.40 (7.40-12.00) fL Neut % (Auto) 71.5 (48.0-80.0) % Lymph % (Auto) 19.6 (16.0-40.0) % [place] % (Auto) 7.8 (0.0-15.0) % Eos % (Auto) 0.9 (0.0-7.0) % Baso % (Auto) 0.2 (0.0-1.5) % Neut # (Auto) 6.5 H (1.4-5.7) K/uL Lymph # (Auto) 1.8 (0.6-2.4) K/uL [place] # (Auto) 0.7 (0.0-0.8) K/uL Eos # (Auto) 0.1 (0.0-0.7) K/uL Baso # (Auto) 0.0 (0.0-0.1) K/uL Nucleated RBC % 0.0 /100WBC Nucleated RBCs # 0 K/uL Sodium 136 (136-145) mmol/L Potassium 3.5 (3.5-5.1) mmol/L Chloride 101 (98-107) mmol/L Carbon Dioxide 28.8 (21.0-32.0) mmol/L BUN 18 (7.0-18.0) mg/dL Creatinine 1.0 (0.6-1.0) mg/dL Est Cr Clr Drug Dosing 33.58 mL/min Estimated GFR (MDRD) 52.3 ml/min Glucose 100 (74-106) mg/dL Calcium 8.1 L (8.5-10.1) mg/dL [place] Results Last 24 Hours: Microbiology 03/22/18 03:59 Aerobic Blood Culture - Preliminary Blood - Venous - Lab Draw NO GROWTH AFTER 3 DAYS Anaerobic Blood Culture - Preliminary NO GROWTH AFTER 3 DAYS 03/22/18 03:55 Aerobic Blood Culture - Preliminary Blood - Venous NO GROWTH AFTER 3 DAYS Anaerobic Blood Culture - Preliminary NO GROWTH AFTER 3 DAYS Med Orders - Current: Current Medications Discontinued Medications Ceftriaxone Sodium (Rocephin) 1,000 mg IVPUSH ONETIME ONE Stop: 03/22/18 03:43 Last Admin: 03/22/18 05:51 Dose: Not Given Digoxin (Lanoxin) 500 mcg IVPUSH ONETIME ONE Stop: 03/22/18 02:35 Last Admin: 03/22/18 02:41 Dose: 500 mcg Digoxin (Lanoxin) 250 mcg IVPUSH ONETIME ONE Stop: 03/24/18 09:51 Last Admin: 03/24/18 10:24 Dose: 250 mcg Diltiazem HCl (Diltiazem) 20 mg IVPUSH ONETIME ONE Stop: 03/22/18 01:32 Last Admin: 03/22/18 01:39 Dose: 20 mg Diltiazem HCl (Diltiazem) 10 mg IVPUSH ONETIME ONE Stop: 03/22/18 08:52 Last Admin: 03/22/18 09:01 Dose: 10 mg Diltiazem HCl (Cardizem) 60 mg PO Q8HR RENE Last Admin: 03/23/18 05:52 Dose: 60 mg Diltiazem HCl (Cardizem) 90 mg PO Q8HR [facility]ENE Last Admin: 03/23/18 12:22 Dose: Not Given Diltiazem HCl (Cardizem) 90 mg PO Q8HR [facility] Last Admin: 03/23/18 13:12 Dose: 90 mg Diltiazem HCl (Cardizem) 90 mg PO ONETIME ONE Stop: 03/23/18 14:40 Last Admin: 03/23/18 14:47 Dose: 90 mg Diltiazem HCl (Cardizem Cd) 180 mg PO BEDTIME [facility] Last Admin: 03/24/18 21:06 Dose: Not Given Diltiazem HCl (Cardizem Cd) 180 mg PO ONETIME ONE Stop: 03/24/18 11:44 Last Admin: 03/24/18 11:56 Dose: 180 mg Enoxaparin Sodium (Lovenox) 40 mg SUBCUT Q24H [facility] Last Admin: 03/22/18 04:59 Dose: 40 mg Furosemide (Lasix) 20 mg IVPUSH ONETIME ONE Stop: 03/24/18 09:01 Last Admin: 03/24/18 09:09 Dose: 20 mg Furosemide (Lasix) 20 mg IVPUSH NOW ONE Stop: 03/24/18 18:16 Last Admin: 03/24/18 18:21 Dose: 20 mg Furosemide (Lasix) 20 mg PO ONETIME ONE Stop: 03/25/18 08:42 Last Admin: 03/25/18 08:51 Dose: 20 mg Heparin Sodium (Porcine) (Heparin Sodium) 5,000 units SUBCUT Q12H [facility] Diltiazem HCl 125 mg/ Sodium (Chloride) 125 mls @ 5 mls/hr IV NOW ONE; Protocol Stop: 03/23/18 02:46 Last Infusion: 03/22/18 02:29 Dose: 0 mg/hr, 0 mls/hr Sodium Chloride (Normal Saline) 1,000 mls @ 999 mls/hr IV .Bolus ONE Stop: 03/22/18 02:47 Last Infusion: 03/22/18 02:29 Dose: 999 mls/hr Potassium Chloride/Sodium Chloride (Normal Saline With 40 Meq Kcl) 1,000 mls @ 100 mls/hr IV ASDIRECTED RENE Stop: 03/22/18 13:14 Last Admin: 03/22/18 04:47 Dose: 100 mls/hr Sodium Chloride (Normal Saline) 1,000 mls @ 125 mls/hr IV ONETIME ONE Stop: 03/22/18 11:06 Last Infusion: 03/22/18 04:47 Dose: 0 mls/hr Diltiazem HCl 125 mg/ Sodium (Chloride) 125 mls @ 5 mls/hr IV NOW ONE; Protocol Stop: 03/23/18 04:28 Last Admin: 03/22/18 04:44 Dose: Not Given Esmolol HCl 2,500 mg/ Sodium (Chloride) 500 mls @ 47.28 mls/hr IV TITRATE RENE; Protocol Ceftriaxone Sodium/Dextrose (Rocephin In Dextrose,Iso-Osm 1 Gm/50 Ml) 50 mls @ 200 mls/hr IV ONETIME ONE Stop: 03/22/18 04:14 Last Admin: 03/22/18 04:45 Dose: 200 mls/hr Esmolol HCl 1,000 mg/ Sodium (Chloride) 200 mls @ 47.28 mls/hr IV TITRATE RENE; Protocol Esmolol HCl 1,000 mg/ Sodium (Chloride) 100 mls @ 23.64 mls/hr IV TITRATE RENE; Protocol Sodium Chloride (Normal Saline) 500 mls @ 999 mls/hr IV ASDIRECTED RENE Last Admin: 03/22/18 18:40 Dose: 999 mls/hr Diltiazem HCl 125 mg/ Sodium (Chloride) 125 mls @ 5 mls/hr IV Q24H [facility]ENE; Protocol Last Infusion: 03/24/18 01:55 Dose: 15 mg/hr, 15 mls/hr Diltiazem HCl 100 mg/ Sodium (Chloride) 120 mls @ 15 mls/hr IV Q24H [facility]; Protocol Last Admin: 03/24/18 00:05 Dose: Not Given Diltiazem HCl 100 mg/ Sodium (Chloride) 100 mls @ 12.5 mls/hr IV ASDIRECTED [facility] ; Protocol Last Titration: 03/24/18 22:37 Dose: 0 mg/hr, 0 mls/hr Magnesium Sulfate 2 gm/ Premix 50 mls @ 50 mls/hr IV ONETIME ONE Stop: 03/24/18 10:37 Last Admin: 03/24/18 10:25 Dose: 50 mls/hr Iopamidol (Isovue Multipack-370 (76%)) 50 ml IVPUSH ONETIME STA Stop: 03/23/18 17:05 Last Admin: 03/23/18 17:05 Dose: 50 ml Metoprolol Tartrate (Lopressor) 5 mg IV ONETIME ONE Stop: 03/22/18 14:16 Last Admin: 03/22/18 15:39 Dose: Not Given Metoprolol Tartrate (Lopressor) 5 mg IVPUSH ONETIME ONE Stop: 03/24/18 04:30 Last Admin: 03/24/18 04:40 Dose: 5 mg Ondansetron HCl (Zofran) 4 mg IVPUSH Q4H PRN PRN Reason: Nausea Last Admin: 03/23/18 11:18 Dose: 4 mg Potassium Chloride (Klor-Con M20) 40 meq PO ONETIME ONE Stop: 03/22/18 03:02 Last Admin: 03/22/18 04:44 Dose: 40 meq Potassium Chloride (Klor-Con M20) 40 meq PO ONETIME ONE Stop: 03/24/18 09:39 Last Admin: 03/24/18 10:29 Dose: 40 meq Potassium Chloride (Klor-Con M20) 40 meq PO ONETIME ONE Stop: 03/25/18 08:45 Last Admin: 03/25/18 08:51 Dose: 40 meq Rivaroxaban (Xarelto) 20 mg PO DAILY@0800 [facility] Last Admin: 03/25/18 08:27 Dose: 20 mg - Exam General: Alert, Oriented HEENT: Pupils Equal, Pupils Reactive Neck: Supple, JVD Lungs: Rales Cardiovascular: Regular Rate, Regular Rhythm GI/Abdominal Exam: Normal Bowel Sounds (Female) Exam: Normal External Exam Extremities: Pedal Edema EKG INTERPRETATION Rhythm: NSR - Problem List Review Problem List Initiated/Reviewed/Updated: Yes - My Orders Last 24 Hours: My Active Orders 03/25/18 07:37 EKG Documentation Completion [RC] STAT - Plan Plan:: 88F HTN PAfib with Afib RVR 1. afib RVR: with ST depression with afib RVR, now converted, will continue cardizem 180 BID, along with lasix 20 PO (CT scan showed possible pulm edema), CTA neg for PE - stress test as out patient - continue cardizem 190 BID, lasix 20 PO, xarelto 20 daily
== END 2018-03-25 10:59 | disposition home or self-care (01) | DRG 309 ==
LOC: MW.ED 01:19 → MW.ICU 03:11
PROVIDERS: ADMIT Internal Medicine; ATTEND Internal Medicine
DX: I48.91 Unspecified atrial fibrillation (principal); I50.30 Unspecified diastolic (congestive) heart failure; D72.829 Elevated white blood cell count, unspecified; K44.9 Diaphragmatic hernia without obstruction or gangrene; R09.02 Hypoxemia; I10 Essential (primary) hypertension; K21.9 Gastro-esophageal reflux disease without esophagitis; F41.9 Anxiety disorder, unspecified; Z79.899 Other long term (current) drug therapy; Z88.8 Allergy status to other drugs, medicaments and biological substances
CPT/HCPCS: 36415; 71045; 80053; 82553; 83605; 83735; 84484; 85025; 93005; 96361; 96374; 96375; 96376; 99285; J1160; J3490 ×2; J7030; J7040 ×2; 71275; 71275-26; 80048; 81001; 84443; 87040; 87086; 93306; 99284; A9270-GY; J0696; J1650; J2405; J3475; J3480; Q9967

== ENCOUNTER 2018-03-27 11:54 | Emergency (ER) | payer MEDICARE, OTHER ==
--- NOTE | 2018-03-27 12:28 | EDM.PDOC ---
ED HPI GENERAL MEDICAL PROBLEM - General Chief Complaint: ENT Problem Stated Complaint: NOSE BLEED Time Seen by Provider: 03/27/18 11:56 - History of Present Illness INITIAL COMMENTS - FREE TEXT/NARRATIVE: HISTORY AND PHYSICAL: History of present illness: Patient's an 88-year-old female with history recently diagnosed stage of fibrillation was put on Xarelto who presents now with bilateral epistaxis she denies trauma denies history of prior events or other concern. Review of systems: As per history of present illness and below otherwise all systems reviewed and negative. Past medical history: As per history of present illness and as reviewed below otherwise noncontributory. Surgical history: As per history of present illness and as reviewed below otherwise noncontributory. Social history: No reported history of drug or alcohol abuse. Family history: As per history of present illness and as reviewed below otherwise noncontributory. Physical exam: HEENT: Atraumatic, normocephalic, pupils reactive, negative for conjunctival pallor or scleral icterus, mucous membranes moist, throat clear, neck supple, nontender, trachea midline. Patient has bilateral epistaxis with active bleeding left greater than right with no identified obvious source Lungs: Clear to auscultation, breath sounds equal bilaterally, chest nontender. Heart: S1S2, regular, negative for clicks, rubs, or JVD. Abdomen: Soft, nondistended, nontender. Negative for masses or hepatosplenomegaly. Negative for costovertebral tenderness. Pelvis: Stable nontender. Genitourinary: Deferred. Rectal: Deferred. Extremities: Atraumatic, negative for cords or calf pain. Neurovascular unremarkable. Neuro: Awake, alert, oriented. Cranial nerves II through XII unremarkable. Cerebellum unremarkable. Motor and sensory unremarkable throughout. Exam nonfocal. Diagnostics: None Therapeutics: Bilateral Rhino Rocket placement in mustache dressing Impression: #1 bilateral epistaxis #2 history of recent atrial fibrillation on Xarelto Definitive disposition and diagnosis as appropriate pending reevaluation and review of above. - Related Data Allergies Allergy/AdvReac Type Severity Reaction Status Date / Time neomycin Allergy Rash Verified 03/27/18 12:10 sulfamethoxazole Allergy Rash Verified 03/27/18 12:10 [From Bactrim] trimethoprim [From Bactrim] Allergy Rash Verified 03/27/18 12:10 Home Meds: Home Meds Estradiol 1 patch .ROUTE ASDIRECTED 10/21/14 [History] HCTZ/Triamterene [Maxzide 25-37.5 MG] 25 - 37.5 mg PO BRK 10/21/14 [History] Quinapril HCl 20 mg PO BRK 10/21/14 [History] Ranitidine [Zantac] 150 mg PO DAILY 10/21/14 [History] LORazepam 0.5 mg PO TID PRN 11/17/14 [History] Loratadine 10 mg PO DAILY PRN 11/17/14 [History] Multivitamin [Multi-Vitamin Daily] 1 tab PO DAILY 02/09/15 [History] Diltiazem [Cardizem CD] 180 mg PO BID 30 Days #60 cap.er 03/25/18 [Rx] Furosemide [Lasix] 10 mg PO DAILY 30 Days #30 tab 03/25/18 [Rx] Rivaroxaban [Xarelto] 20 mg PO DAILY@0800 30 Days #30 tablet 03/25/18 [Rx] Past Medical History HEENT History: Reports: Impaired Vision Cardiovascular History: Reports: Hypertension Gastrointestinal History: Reports: GERD, Hiatal Hernia Genitourinary History: Reports: None 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 ED EXAM, GENERAL - Physical Exam Exam: See Below (See dictation) Course - Vital Signs Last Recorded V/S: Last Vital Signs Temp 36.6 C 03/27/18 12:15 Pulse 94 03/27/18 12:15 Resp 18 03/27/18 12:15 BP 129/78 03/27/18 12:15 Pulse Ox 95 03/27/18 12:15 Departure - Departure Time of Disposition: 12:39 Disposition: Home, Self-Care 01 Condition: Good Clinical Impression: Epistaxis - Discharge Information Referrals: Damaris Coronado NP [Primary Care Provider] - Forms: ED Department Discharge Additional Instructions: The following information is given to patients seen in the emergency department who are being discharged to home. This information is to outline your options for follow-up care. We provide all patients seen in our emergency department with a follow-up referral. The need for follow-up, as well as the timing and circumstances, are variable depending upon the specifics of your emergency department visit. If you don't have a primary care physician on staff, we will provide you with a referral. We always advise you to contact your personal physician following an emergency department visit to inform them of the circumstance of the visit and for follow-up with them and/or the need for any referrals to a consulting specialist. The emergency department will also refer you to a specialist when appropriate. This referral assures that you have the opportunity for followup care with a specialist. All of these measure are taken in an effort to provide you with optimal care, which includes your followup. Under all circumstances we always encourage you to contact your private physician who remains a resource for coordinating your care. When calling for followup care, please make the office aware that this follow-up is from your recent emergency room visit. If for any reason you are refused follow-up, please contact the [facility] emergency department at and asked to speak to the emergency department charge nurse. Keflex as prescribed follow-up 24-48 hours with emergency department for packing removal as discussed hold Ishan follow-up primary medical doctor as discussed and return as needed as discussed
[2018-03-27 13:34] VITALS: BP 147/72
== END 2018-03-27 13:01 | disposition home or self-care (01) ==
LOC: MW.ED 11:54
DX: R04.0 Epistaxis (principal); I10 Essential (primary) hypertension; K21.9 Gastro-esophageal reflux disease without esophagitis; Z88.1 Allergy status to other antibiotic agents; Z88.2 Allergy status to sulfonamides; Z79.899 Other long term (current) drug therapy; Z79.01 Long term (current) use of anticoagulants
CPT/HCPCS: 99283

== ENCOUNTER 2018-03-27 19:32 | Emergency (ER) | payer MEDICARE, OTHER ==
--- NOTE | 2018-03-27 19:36 | EDM.PDOC ---
ED HPI GENERAL MEDICAL PROBLEM - General Chief Complaint: ENT Problem Stated Complaint: NOSE BLEED Time Seen by Provider: 03/27/18 19:36 Source of Information: Reports: Patient - History of Present Illness INITIAL COMMENTS - FREE TEXT/NARRATIVE: HISTORY AND PHYSICAL: History of present illness: [Patient presents with history of epistaxis, she has had to rapid Rhino was placed today at around noon, having some discomfort in her left nare, I deflated the balloon device by 1 mL comfort improved. She has had a known UTI will recently in the hospital for atrial fibrillation she is provided Rocephin at that time she was started on Keflex 500 by mouth 3 times a day today she should continue this and follow up on Friday for removal of the balloon devices otherwise no other complaint no fever nausea vomiting chills sweats no active bleed ] Review of systems: As per history of present illness and below otherwise all systems reviewed and negative. Past medical history: As per history of present illness and as reviewed below otherwise noncontributory. Surgical history: As per history of present illness and as reviewed below otherwise noncontributory. Social history: No reported history of drug or alcohol abuse. Family history: As per history of present illness and as reviewed below otherwise noncontributory. Physical exam: HEENT: Atraumatic, normocephalic, pupils reactive, negative for conjunctival pallor or scleral icterus, mucous membranes moist, throat clear, neck supple, nontender, trachea midline. Bilateral the Route balloon devices noted in the nares Lungs: Clear to auscultation, breath sounds equal bilaterally, chest nontender. Heart: S1S2, regular, negative for clicks, rubs, or JVD. Abdomen: Soft, nondistended, nontender. Negative for masses or hepatosplenomegaly. Negative for costovertebral tenderness. Pelvis: Stable nontender. Genitourinary: Deferred. Rectal: Deferred. Extremities: Atraumatic, negative for cords or calf pain. Neurovascular unremarkable. Neuro: Awake, alert, oriented. Cranial nerves II through XII unremarkable. Cerebellum unremarkable. Motor and sensory unremarkable throughout. Exam nonfocal. Diagnostics: [CBC INR ] Therapeutics: [Decreased left there pressure prior 1 mL of air] Impression: Epistaxis-controlled History of UTI on Keflex Definitive disposition and diagnosis as appropriate pending reevaluation and review of above. Nose Pain Score (Numeric/FACES): 4 - Related Data Allergies Allergy/AdvReac Type Severity Reaction Status Date / Time neomycin Allergy Rash Verified 03/27/18 12:10 sulfamethoxazole Allergy Rash Verified 03/27/18 12:10 [From Bactrim] trimethoprim [From Bactrim] Allergy Rash Verified 03/27/18 12:10 Home Meds: Home Meds Estradiol 1 patch .ROUTE ASDIRECTED 10/21/14 [History] HCTZ/Triamterene [Maxzide 25-37.5 MG] 25 - 37.5 mg PO BRK 10/21/14 [History] Quinapril HCl 20 mg PO BRK 10/21/14 [History] Ranitidine [Zantac] 150 mg PO DAILY 10/21/14 [History] LORazepam 0.5 mg PO TID PRN 11/17/14 [History] Loratadine 10 mg PO DAILY PRN 11/17/14 [History] Multivitamin [Multi-Vitamin Daily] 1 tab PO DAILY 02/09/15 [History] Diltiazem [Cardizem CD] 180 mg PO BID 30 Days #60 cap.er 03/25/18 [Rx] Furosemide [Lasix] 10 mg PO DAILY 30 Days #30 tab 03/25/18 [Rx] Rivaroxaban [Xarelto] 20 mg PO DAILY@0800 30 Days #30 tablet 03/25/18 [Rx] Past Medical History HEENT History: Reports: Impaired Vision Cardiovascular History: Reports: Hypertension Gastrointestinal History: Reports: GERD, Hiatal Hernia Genitourinary History: Reports: None 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: - Infectious Disease History Infectious Disease History: Reports: Measles - Past Surgical History HEENT Surgical History: Reports: None GI Surgical History: Reports: Colonoscopy, Hernia, Abdominal Female Surgical History: Reports: Hysterectomy Social & Family History - Family History Family Medical History: Noncontributory - Caffeine Use Caffeine Use: Reports: None ED ROS GENERAL - Review of Systems Review Of Systems: See Below ED EXAM, GENERAL - Physical Exam Exam: See Below Course - Vital Signs Last Recorded V/S: Last Vital Signs Temp 98.1 F 03/27/18 19:50 Pulse 90 03/27/18 19:50 Resp 18 03/27/18 19:50 BP 138/81 03/27/18 19:50 Pulse Ox 92 L 03/27/18 19:50 - Orders/Labs/Meds Orders: Active Orders 24 hr Category Date Time Status UA W/MICROSCOPIC [URIN] Stat Lab 03/27/18 19:58 Ordered Labs: Laboratory Tests 03/27/18 03/27/18 Range/Units 19:40 19:40 WBC 8.91 (4.0-11.0) K/uL RBC 4.39 (4.30-5.90) M/uL Hgb 13.5 (12.0-16.0) g/dL Hct 39.6 (36.0-46.0) % MCV 90.2 (80.0-98.0) fL MCH 30.8 (27.0-32.0) pg MCHC 34.1 (31.0-37.0) g/dL RDW Std Deviation 43.9 (28.0-62.0) fl RDW Coeff of Ranjit 13 (11.0-15.0) % Plt Count 378 (150-400) K/uL MPV 8.80 (7.40-12.00) fL Neut % (Auto) 57.3 (48.0-80.0) % Lymph % (Auto) 31.0 (16.0-40.0) % [place] % (Auto) 9.1 (0.0-15.0) % Eos % (Auto) 2.4 (0.0-7.0) % Baso % (Auto) 0.2 (0.0-1.5) % Neut # (Auto) 5.1 (1.4-5.7) K/uL Lymph # (Auto) 2.8 H (0.6-2.4) K/uL [place] # (Auto) 0.8 (0.0-0.8) K/uL Eos # (Auto) 0.2 (0.0-0.7) K/uL Baso # (Auto) 0.0 (0.0-0.1) K/uL Nucleated RBC % 0.0 /100WBC Nucleated RBCs # 0 K/uL INR 1.24 Departure - Departure Time of Disposition: 20:19 Disposition: Home, Self-Care 01 Condition: Good Clinical Impression: Epistaxis - Discharge Information Forms: ED Department Discharge Additional Instructions: Continue medication as directed Return if symptoms persist or worsen Follow-up on Friday for removal of balloon device from nares The following information is given to patients seen in the emergency department who are being discharged to home. This information is to outline your options for follow-up care. We provide all patients seen in our emergency department with a follow-up referral. The need for follow-up, as well as the timing and circumstances, are variable depending upon the specifics of your emergency department visit. If you don't have a primary care physician on staff, we will provide you with a referral. We always advise you to contact your personal physician following an emergency department visit to inform them of the circumstance of the visit and for follow-up with them and/or the need for any referrals to a consulting specialist. The emergency department will also refer you to a specialist when appropriate. This referral assures that you have the opportunity for follow-up care with a specialist. All of these measure are taken in an effort to provide you with optimal care, which includes your follow-up. Under all circumstances we always encourage you to contact your private physician who remains a resource for coordinating your care. When calling for follow-up care, please make the office aware that this follow-up is from your recent emergency room visit. If for any reason you are refused follow-up, please contact the [facility] emergency department at and asked to speak to the emergency department charge nurse. - My Orders Last 24 Hours: My Active Orders 03/27/18 19:58 UA W/MICROSCOPIC [URIN] Stat - Assessment/Plan Last 24 Hours: My Active Orders 03/27/18 19:58 UA W/MICROSCOPIC [URIN] Stat
[2018-03-27 20:49] VITALS: BP 140/72
== END 2018-03-27 20:35 | disposition home or self-care (01) ==
LOC: MW.ED 19:32
DX: R04.0 Epistaxis (principal); N39.0 Urinary tract infection, site not specified; I48.91 Unspecified atrial fibrillation; Z79.899 Other long term (current) drug therapy; Z79.01 Long term (current) use of anticoagulants; Z88.1 Allergy status to other antibiotic agents
CPT/HCPCS: 36415; 85025; 85610; 99283

== ENCOUNTER 2018-03-29 12:21 | Emergency (ER) | payer MEDICARE, OTHER ==
[2018-03-29 13:23] VITALS: BP 133/66
--- NOTE | 2018-03-29 13:43 | EDM.PDOC ---
ED HPI GENERAL MEDICAL PROBLEM - General Chief Complaint: ENT Problem Stated Complaint: NEEDS NOSE APARATUS REMOVED Time Seen by Provider: 03/29/18 12:55 Source of Information: Reports: Patient History Limitations: Reports: No Limitations - History of Present Illness INITIAL COMMENTS - FREE TEXT/NARRATIVE: HISTORY AND PHYSICAL: History of present illness: Patient is an 88-year-old female who presents to the emergency room with the request of her bilateral Rhino Rocket to be removed. She did have bilateral epistaxis on 03/27/2018 and presented to our emergency room and had to get bilateral Rhino Rocket to manage bleeding. Patient denies any problems since rocket insertion. She denies any fever, chills, chest pain, shortness of breath , or cough. Denies any dominant abdominal pain, nausea, vomiting, diarrhea or constipation. Denies any headache, dizziness or vision. Review of systems: As per history of present illness and below otherwise all systems reviewed and negative. Past medical history: As per history of present illness and as reviewed below otherwise noncontributory. Surgical history: As per history of present illness and as reviewed below otherwise noncontributory. Social history: No reported history of drug or alcohol abuse. Family history: As per history of present illness and as reviewed below otherwise noncontributory. Physical exam: General: Well-developed and well-nourished 88-year-old female. Alert and oriented. Nontoxic appearing and in no acute distress. HEENT: Atraumatic, normocephalic, pupils equal and reactive bilaterally, negative for conjunctival pallor or scleral icterus, mucous membranes moist, bilateral RhinoRocket to nares, throat clear, neck supple, nontender, trachea midline. No drooling or trismus noted. No meningeal signs Lungs: Clear to auscultation, breath sounds equal bilaterally, chest nontender. Heart: S1S2, regular rate and rhythm without overt murmur Abdomen: Soft, nondistended, nontender. Negative for masses or hepatosplenomegaly. Negative for costovertebral tenderness. Pelvis: Stable nontender. Genitourinary: Deferred. Rectal: Deferred. Skin: Intact, warm, dry. No lesions or rashes noted. Extremities: Atraumatic, negative for cords or calf pain. Neurovascular unremarkable. Neuro: Awake, alert, oriented. Cranial nerves II through XII unremarkable. Cerebellum unremarkable. Motor and sensory unremarkable throughout. Exam nonfocal. Notes: Rhino Rocket's were deflated and removed with ease. Tolerated well. No current bleeding noted. Nasal examination shows patent nares with no active bleeding. Supportive care measures were reviewed and discussed. Patient discharged to home. She denies any further questions or concerns at this time. Diagnostics: None Therapeutics: Rhino Rocket removed from nares Impression: Encounter for Rhino Rocket removal Plan: 1. Please avoid blowing your nose vigorously. 2. Follow-up with your primary caregiver in the next 1-2 days. Return to the ED as needed and as discussed. Definitive disposition and diagnosis as appropriate pending reevaluation and review of above. - Related Data Allergies Allergy/AdvReac Type Severity Reaction Status Date / Time neomycin Allergy Rash Verified 03/29/18 13:23 sulfamethoxazole Allergy Rash Verified 03/29/18 13:23 [From Bactrim] trimethoprim [From Bactrim] Allergy Rash Verified 03/29/18 13:23 Home Meds: Home Meds Estradiol 1 patch .ROUTE ASDIRECTED 10/21/14 [History] HCTZ/Triamterene [Maxzide 25-37.5 MG] 25 - 37.5 mg PO BRK 10/21/14 [History] Quinapril HCl 20 mg PO BRK 10/21/14 [History] Ranitidine [Zantac] 150 mg PO DAILY 10/21/14 [History] LORazepam 0.5 mg PO TID PRN 11/17/14 [History] Loratadine 10 mg PO DAILY PRN 11/17/14 [History] Multivitamin [Multi-Vitamin Daily] 1 tab PO DAILY 02/09/15 [History] Diltiazem [Cardizem CD] 180 mg PO BID 30 Days #60 cap.er 03/25/18 [Rx] Furosemide [Lasix] 10 mg PO DAILY 30 Days #30 tab 03/25/18 [Rx] Rivaroxaban [Xarelto] 20 mg PO DAILY@0800 30 Days #30 tablet 03/25/18 [Rx] Past Medical History HEENT History: Reports: Impaired Vision Cardiovascular History: Reports: Afib, Hypertension Gastrointestinal History: Reports: GERD, Hiatal Hernia Genitourinary History: Reports: None 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: Musculoskeletal History: Reports: Arthritis Psychiatric History: Reports: Anxiety - Infectious Disease History Infectious Disease History: Reports: Chicken Pox - Past Surgical History HEENT Surgical History: Reports: None GI Surgical History: Reports: Colonoscopy, Hernia, Abdominal Female Surgical History: Reports: Hysterectomy Social & Family History - Family History Family Medical History: Noncontributory - Tobacco Use Smoking Status *Q: Never Smoker - Caffeine Use Caffeine Use: Reports: Tea - Recreational Drug Use Recreational Drug Use: No ED ROS ENT - Review of Systems Review Of Systems: ROS reveals no pertinent complaints other than HPI. ED EXAM, ENT - Physical Exam Exam: See Below (See dictation) Course - Vital Signs Last Recorded V/S: Last Vital Signs Temp 97.9 F 03/29/18 13:18 Pulse 85 03/29/18 13:18 Resp 20 03/29/18 13:18 BP 133/66 03/29/18 13:18 Pulse Ox 96 03/29/18 13:18 Departure - Departure Time of Disposition: 13:43 Disposition: Home, Self-Care 01 Clinical Impression: Encounter for removal of nasal packing - Discharge Information Referrals: Alirio Vera MD [Primary Care Provider] - Additional Instructions: The following information is given to patients seen in the emergency department who are being discharged to home. This information is to outline your options for follow-up care. We provide all patients seen in our emergency department with a follow-up referral. The need for follow-up, as well as the timing and circumstances, are variable depending upon the specifics of your emergency department visit. If you don't have a primary care physician on staff, we will provide you with a referral. We always advise you to contact your personal physician following an emergency department visit to inform them of the circumstance of the visit and for follow-up with them and/or the need for any referrals to a consulting specialist. The emergency department will also refer you to a specialist when appropriate. This referral assures that you have the opportunity for follow-up care with a specialist. All of these measure are taken in an effort to provide you with optimal care, which includes your follow-up. Under all circumstances we always encourage you to contact your private physician who remains a resource for coordinating your care. When calling for follow-up care, please make the office aware that this follow-up is from your recent emergency room visit. If for any reason you are refused follow-up, please contact the [facility] Emergency Department at and asked to speak to the emergency department charge nurse. [facility] [address] [place] [id number] 1. Please avoid blowing your nose vigorously. 2. Follow-up with your primary caregiver in the next 1-2 days. Return to the ED as needed and as discussed.
== END 2018-03-29 14:20 | disposition home or self-care (01) ==
LOC: MW.ED 12:21
DX: Z48.00 Encounter for change or removal of nonsurgical wound dressing (principal); I10 Essential (primary) hypertension; Z88.1 Allergy status to other antibiotic agents; Z88.2 Allergy status to sulfonamides; Z79.899 Other long term (current) drug therapy
CPT/HCPCS: 99282